=== PATIENT | male | born 1990 | race African-American/Black ===

== ENCOUNTER 2022-01-31 21:26 | Inpatient (IN) | payer MEDICARE, OTHER ==
[2022-02-01] MEDS ORDERED: MORPHINE SULFATE 4 MG/ML SYRINGE IV STA (00:53)
[2022-02-01] MEDS ORDERED: SODIUM CHLORIDE 0.9% 1,000 ML IV STA (00:53)
--- NOTE | 2022-02-01 00:53 | ED ---
Recheck HPI - General Chief Complaint: Syncope Stated Complaint: Headache,Vomiting Time Seen by Provider: 01/31/22 23:33 Source: patient, RN notes reviewed, old records reviewed Mode of arrival: wheelchair Limitations: no limitations - History of Present Illness MD Complaint: other (Syncope) -: minutes(s) Returns Today for: request for prescription, persistent/worsening pain related to initial visit Symptoms Since Prior Visit: worsening pain Context: planned re-check Associated Symptoms: none Treatments Prior to Arrival: other medications - Related Data Home Medications Medication Instructions Recorded Confirmed No Known Home Medications 02/01/22 02/01/22 Previous Rx's Medication Instructions Recorded Calcium Acetate [PhosLo] 667 mg PO TID-W/MEALS 30 Days #90 02/03/22 tab hydrALAZINE HCL [Apresoline] 50 mg PO TID 30 Days #90 tab 02/03/22 Allergies Allergy/AdvReac Type Severity Reaction Status Date / Time Iodinated Contrast Media Allergy Rash/Hives Verified 02/01/22 07:19 azithromycin AdvReac Unknown Verified 02/01/22 07:19 Macrolide Antibiotics AdvReac Unknown Verified 02/01/22 07:19 Macrolide Immunosuppressant AdvReac Unknown Verified 02/01/22 07:19 NSAIDS (Non-Steroidal AdvReac Unknown Verified 02/01/22 07:19 Anti-Inflamma Sulfa (Sulfonamide AdvReac Unknown Verified 02/01/22 07:19 Antibiotics) sulfamethoxazole AdvReac Unknown Verified 02/01/22 07:19 [From Bactrim] trimethoprim [From Bactrim] AdvReac Unknown Verified 02/01/22 07:19 Review of Systems ROS Statement: Those systems with pertinent positive or pertinent negative responses have been documented in the HPI. ROS Other: All systems not noted in ROS Statement are negative. Past Medical History Past Medical History: Dialysis Additional Past Medical History / Comment(s): benign heart murmer, Past Surgical History: Tonsillectomy Additional Past Surgical History / Comment(s): 2 kidney transplants (1993,2006), uvulaectomy, sinus surgery, thyroidectomy, fistula Smoking Status: Never smoker Past Alcohol Use History: None Reported Past Drug Use History: None Reported - Past Family History Mother Family Medical History: Renal Disease Additional Family Medical History / Comment(s): Mother from renal disease. Father History Unknown: Yes General Exam Limitations: no limitations General appearance: alert, in no apparent distress Head exam: Present: atraumatic, normocephalic, normal inspection Eye exam: Present: normal appearance, PERRL, EOMI. Absent: scleral icterus, conjunctival injection, periorbital swelling ENT exam: Present: normal exam, mucous membranes moist Neck exam: Present: normal inspection. Absent: tenderness, meningismus, lymphadenopathy Respiratory exam: Present: normal lung sounds bilaterally. Absent: respiratory distress, wheezes, rales, rhonchi, stridor Cardiovascular Exam: Present: regular rate, normal rhythm, normal heart sounds. Absent: systolic murmur, diastolic murmur, rubs, gallop, clicks GI/Abdominal exam: Present: soft, normal bowel sounds. Absent: distended, tenderness, guarding, rebound, rigid Extremities exam: Present: normal inspection, full ROM, normal capillary refill. Absent: tenderness, pedal edema, joint swelling, calf tenderness Back exam: Present: normal inspection Neurological exam: Present: alert, oriented X3, CN II-XII intact Psychiatric exam: Present: normal affect, normal mood Skin exam: Present: warm, dry, intact, normal color. Absent: rash Course Vital Signs 01/31/22 02/01/22 02/01/22 23:04 03:48 09:14 Temperature 97.5 F L 97.8 F Pulse Rate 78 81 74 Respiratory 18 16 16 Rate Blood Pressure 172/84 153/78 174/85 O2 Sat by Pulse 100 99 99 Oximetry 02/01/22 11:43 Temperature Pulse Rate 93 Respiratory 15 Rate Blood Pressure 190/97 O2 Sat by Pulse 98 Oximetry - Reevaluation(s) Reevaluation #1: 02/01/22 Reevaluation #2: 02/01/22 Reevaluation #3: 02/01/22 Medical Decision Making - Lab Data Result diagrams: 02/03/22 10:48 02/03/22 10:48 Lab Results 02/01/22 02/01/22 02/01/22 Range/Units 02:22 02:22 02:22 WBC 5.0 (3.8-10.6) k/uL RBC 3.54 L (4.30-5.90) m/uL Hgb 10.4 L (13.0-17.5) gm/dL Hct 32.5 L (39.0-53.0) % MCV 92.0 (80.0-100.0) fL MCH 29.3 (25.0-35.0) pg MCHC 31.8 (31.0-37.0) g/dL RDW 15.6 H (11.5-15.5) % Plt Count 168 (150-450) k/uL MPV 8.9 Neutrophils % 64 % Lymphocytes % 24 % Monocytes % 5 % Eosinophils % 5 % Basophils % 1 % Neutrophils # 3.2 (1.3-7.7) k/uL Lymphocytes # 1.2 (1.0-4.8) k/uL Monocytes # 0.3 (0-1.0) k/uL Eosinophils # 0.2 (0-0.7) k/uL Basophils # 0.0 (0-0.2) k/uL Hypochromasia Slight Anisocytosis PT 11.2 (9.0-12.0) sec INR 1.0 (<1.2) APTT 25.1 (22.0-30.0) sec Sodium (137-145) mmol/L Potassium (3.5-5.1) mmol/L Chloride (98-107) mmol/L Carbon Dioxide (22-30) mmol/L Anion Gap mmol/L BUN (9-20) mg/dL Creatinine (0.66-1.25) mg/dL Est GFR (CKD-EPI)AfAm (>60 ml/min/1.73 sqM) Est GFR (CKD-EPI)NonAf (>60 ml/min/1.73 sqM) Glucose (74-99) mg/dL Calcium (8.4-10.2) mg/dL Phosphorus (2.5-4.5) mg/dL Magnesium (1.6-2.3) mg/dL Total Bilirubin (0.2-1.3) mg/dL AST (17-59) U/L ALT (4-49) U/L Alkaline Phosphatase (38-126) U/L Troponin I 0.017 (0.000-0.034) ng/mL NT-Pro-B Natriuret Pep pg/mL Total Protein (6.3-8.2) g/dL Albumin (3.5-5.0) g/dL Globulin g/dL Albumin/Globulin Ratio Coronavirus (PCR) (Not Detectd) Hep Bs Antigen (Nonreactive) Hep Bs Antibody (Nonreactive) Hep Bs Antibody, Quant mIU/mL 02/01/22 02/01/22 02/01/22 Range/Units 02:22 03:32 03:32 WBC (3.8-10.6) k/uL RBC (4.30-5.90) m/uL Hgb (13.0-17.5) gm/dL Hct (39.0-53.0) % MCV (80.0-100.0) fL MCH (25.0-35.0) pg MCHC (31.0-37.0) g/dL RDW (11.5-15.5) % Plt Count (150-450) k/uL MPV Neutrophils % % Lymphocytes % % Monocytes % % Eosinophils % % Basophils % % Neutrophils # (1.3-7.7) k/uL Lymphocytes # (1.0-4.8) k/uL Monocytes # (0-1.0) k/uL Eosinophils # (0-0.7) k/uL Basophils # (0-0.2) k/uL Hypochromasia Anisocytosis PT (9.0-12.0) sec INR (<1.2) APTT (22.0-30.0) sec Sodium 139 (137-145) mmol/L Potassium 4.3 (3.5-5.1) mmol/L Chloride 113 H (98-107) mmol/L Carbon Dioxide 7 L* (22-30) mmol/L Anion Gap 19 mmol/L BUN 109 H* (9-20) mg/dL Creatinine 27.97 H* (0.66-1.25) mg/dL Est GFR (CKD-EPI)AfAm 2 (>60 ml/min/1.73 sqM) Est GFR (CKD-EPI)NonAf 2 (>60 ml/min/1.73 sqM) Glucose 56 L (74-99) mg/dL Calcium 6.2 L* (8.4-10.2) mg/dL Phosphorus 9.8 H* (2.5-4.5) mg/dL Magnesium 2.8 H (1.6-2.3) mg/dL Total Bilirubin 0.4 (0.2-1.3) mg/dL AST 4 L (17-59) U/L ALT <6 (4-49) U/L Alkaline Phosphatase 47 (38-126) U/L Troponin I (0.000-0.034) ng/mL NT-Pro-B Natriuret Pep 48757 pg/mL Total Protein 4.9 L (6.3-8.2) g/dL Albumin 2.7 L (3.5-5.0) g/dL Globulin g/dL Albumin/Globulin Ratio Coronavirus (PCR) (Not Detectd) Hep Bs Antigen Nonreactive (Nonreactive) Hep Bs Antibody Reactive A (Nonreactive) Hep Bs Antibody, Quant 1000.0 mIU/mL 02/01/22 02/02/22 02/02/22 Range/Units 05:16 08:33 08:33 WBC 3.4 L (3.8-10.6) k/uL RBC 2.95 L (4.30-5.90) m/uL Hgb 8.9 L D (13.0-17.5) gm/dL Hct 26.6 L (39.0-53.0) % MCV 90.2 (80.0-100.0) fL MCH 30.0 (25.0-35.0) pg MCHC 33.3 (31.0-37.0) g/dL RDW 16.1 H (11.5-15.5) % Plt Count 155 (150-450) k/uL MPV 7.9 Neutrophils % % Lymphocytes % % Monocytes % % Eosinophils % % Basophils % % Neutrophils # (1.3-7.7) k/uL Lymphocytes # (1.0-4.8) k/uL Monocytes # (0-1.0) k/uL Eosinophils # (0-0.7) k/uL Basophils # (0-0.2) k/uL Hypochromasia Anisocytosis Slight PT (9.0-12.0) sec INR (<1.2) APTT (22.0-30.0) sec Sodium 137 (137-145) mmol/L Potassium 3.7 (3.5-5.1) mmol/L Chloride 99 (98-107) mmol/L Carbon Dioxide 23 (22-30) mmol/L Anion Gap 15 mmol/L BUN 67 H (9-20) mg/dL Creatinine 21.43 H* (0.66-1.25) mg/dL Est GFR (CKD-EPI)AfAm 3 (>60 ml/min/1.73 sqM) Est GFR (CKD-EPI)NonAf 2 (>60 ml/min/1.73 sqM) Glucose 103 H (74-99) mg/dL Calcium 7.8 L (8.4-10.2) mg/dL Phosphorus (2.5-4.5) mg/dL Magnesium 2.6 H (1.6-2.3) mg/dL Total Bilirubin 0.5 (0.2-1.3) mg/dL AST 6 L (17-59) U/L ALT <6 (4-49) U/L Alkaline Phosphatase 62 (38-126) U/L Troponin I (0.000-0.034) ng/mL NT-Pro-B Natriuret Pep pg/mL Total Protein 6.1 L (6.3-8.2) g/dL Albumin 3.6 (3.5-5.0) g/dL Globulin 2.5 g/dL Albumin/Globulin Ratio 1.4 Coronavirus (PCR) Not Detected (Not Detectd) Hep Bs Antigen (Nonreactive) Hep Bs Antibody (Nonreactive) Hep Bs Antibody, Quant mIU/mL 02/02/22 Range/Units 08:33 WBC (3.8-10.6) k/uL RBC (4.30-5.90) m/uL Hgb (13.0-17.5) gm/dL Hct (39.0-53.0) % MCV (80.0-100.0) fL MCH (25.0-35.0) pg MCHC (31.0-37.0) g/dL RDW (11.5-15.5) % Plt Count (150-450) k/uL MPV Neutrophils % % Lymphocytes % % Monocytes % % Eosinophils % % Basophils % % Neutrophils # (1.3-7.7) k/uL Lymphocytes # (1.0-4.8) k/uL Monocytes # (0-1.0) k/uL Eosinophils # (0-0.7) k/uL Basophils # (0-0.2) k/uL Hypochromasia Anisocytosis PT (9.0-12.0) sec INR (<1.2) APTT (22.0-30.0) sec Sodium (137-145) mmol/L Potassium (3.5-5.1) mmol/L Chloride (98-107) mmol/L Carbon Dioxide (22-30) mmol/L Anion Gap mmol/L BUN (9-20) mg/dL Creatinine (0.66-1.25) mg/dL Est GFR (CKD-EPI)AfAm (>60 ml/min/1.73 sqM) Est GFR (CKD-EPI)NonAf (>60 ml/min/1.73 sqM) Glucose (74-99) mg/dL Calcium (8.4-10.2) mg/dL Phosphorus 8.3 H (2.5-4.5) mg/dL Magnesium (1.6-2.3) mg/dL Total Bilirubin (0.2-1.3) mg/dL AST (17-59) U/L ALT (4-49) U/L Alkaline Phosphatase (38-126) U/L Troponin I (0.000-0.034) ng/mL NT-Pro-B Natriuret Pep pg/mL Total Protein (6.3-8.2) g/dL Albumin (3.5-5.0) g/dL Globulin g/dL Albumin/Globulin Ratio Coronavirus (PCR) (Not Detectd) Hep Bs Antigen (Nonreactive) Hep Bs Antibody (Nonreactive) Hep Bs Antibody, Quant mIU/mL - EKG Data -: EKG Interpreted by Me (EKG shows sinus rhythm 83 [place] 151 QRS 73 QTC 420) Disposition Clinical Impression: Vasovagal syncope, Chronic kidney disease, Syncope Disposition: ADMITTED IP TO THIS HOSP Condition: Stable Is patient prescribed a controlled substance at d/c from ED?: No
[2022-02-01 02:55] LABS: Partial Thromboplastin Time 25.1 sec (22.0-30.0); Prothrombin Time 11.2 sec (9.0-12.0)
[2022-02-01 03:06] LABS: Basophils % (A) 1 %; Eosinophils # (A) 0.2 k/uL (0-0.7); Eosinophils % (A) 5 %; HCT 32.5 % (39.0-53.0); HGB 10.4 gm/dL (13.0-17.5); Hypochromasia Slight; Lymphocytes # (A) 1.2 k/uL (1.0-4.8); Lymphocytes % (A) 24 %; MCH 29.3 pg (25.0-35.0); MCHC 31.8 g/dL (31.0-37.0); Mean Platelet Volume 8.9; Monocytes # (A) 0.3 k/uL (0-1.0); Monocytes % (A) 5 %; Neutrophils # (A) 3.2 k/uL (1.3-7.7); Neutrophils % (A) 64 %; Platelet Count 168 k/uL (150-450); RBC 3.54 m/uL (4.30-5.90); RDW 15.6 % (11.5-15.5)
[2022-02-01 04:08] LABS: ALT <6 U/L (4-49); AST 4 U/L (17-59); Albumin 2.7 g/dL (3.5-5.0); Alkaline Phosphatase 47 U/L (38-126); Anion Gap 19 mmol/L; Chloride 113 mmol/L (98-107); Glucose 56 mg/dL (74-99); Magnesium 2.8 mg/dL (1.6-2.3); Potassium 4.3 mmol/L (3.5-5.1); Sodium 139 mmol/L (137-145); Total Bilirubin 0.4 mg/dL (0.2-1.3); Total Protein 4.9 g/dL (6.3-8.2)
--- NOTE | 2022-02-01 04:08 | CT ---
EXAM: CT Head Without Intravenous Contrast CLINICAL HISTORY: ITS.REASON CT Reason: weakness TECHNIQUE: Axial computed tomography images of the head/brain without intravenous contrast. CTDI is 1082.4 mGy and DLP is 49.27 mGy-cm. This CT exam was performed using one or more of the following dose reduction techniques: automated exposure control, adjustment of the mA and/or kV according to patient size, and/or use of iterative reconstruction technique. COMPARISON: No relevant prior studies available. FINDINGS: Brain: No hemorrhage or mass effect. Ventricles: No hydrocephalus. Bones/joints: Unremarkable. Soft tissues: Unremarkable. Sinuses: No air fluid level. Mastoid air cells: Clear. IMPRESSION: No acute hemorrhage, hydrocephalus, or mass effect.
[2022-02-01 04:14] LABS: African American GFR (CKD) 2 (>60 ml/min/1.73 sqM); Non-African American GFR(CKD) 2 (>60 ml/min/1.73 sqM)
[2022-02-01] MEDS ORDERED: NALOXONE 0.4 MG/ML 1 ML VIAL IV PRN (04:16)
[2022-02-01 04:22] LABS: Blood Urea Nitrogen 109 mg/dL (9-20); Calcium 6.2 mg/dL (8.4-10.2); Carbon Dioxide 7 mmol/L (22-30); Phosphorus 9.8 mg/dL (2.5-4.5)
[2022-02-01] MEDS: SODIUM CHLORIDE 0.9% 1,000 ML IV SCH (04:45)
--- NOTE | 2022-02-01 06:02 | P.HPIM ---
History of Present Illness H&P Date: 02/01/22 The patient is a 31-year-old male with a PMH of ESRD on hemodialysis who presents to the emergency room after a recent COVID-19 diagnosis as well as missing several weeks of dialysis. The patient reports that his girlfriend contracted COVID roughly 2 weeks ago, and that he only began showing symptoms yesterday. He reports being tested and being told that it was positive. He reports experiencing shortness of breath, nonproductive cough, fatigue, excessive sleep, diarrhea, diffuse mild abdominal pain, and lethargy. Also reports receiving his last session of dialysis on 01/18 and not being able to get any additional ones due to his COVID diagnosis. He denied chest discomfort or fever. CT brain in the emergency room was unremarkable. EKG was sinus rhythm at [address]/T-wave changes noted as reviewed by me. Laboratory evaluation is remarkable for CO2 7, BUN 109, creatinine 27.97, calcium 6.2, phosphorus 9.8. Review of systems: Pertinent positives and negatives as discussed in HPI, a complete review of systems was performed and all other systems are negative. Physical examination: General: non toxic, no distress, appears older than stated age, normal weight Derm: no unusual rashes/lesions, warm Head: atraumatic, normocephalic, symmetric Eyes: EOMI, no lid lag, anicteric sclera, pupils equal round reactive to light ENT: Nose and ears atraumatic Neck: No cervical lymphadenopathy, trachea midline, supple Mouth: no lip lesion, mucus membranes moist Cardiovascular: S1S2 reg, no murmur, positive dorsalis pedis pulse bilateral, no edema Lungs: CTA bilateral, no rhonchi, no rales, no accessory muscle use Abdominal: soft, diffuse mild tenderness to palpation, no guarding Ext: muscle strength 5 out of 5 in all 4 extremities grossly, no gross muscle atrophy, no contractures, Neuro: CN II-XI grossly intact, no gross focal neuro deficits Psych: Alert, oriented, appropriate affect Assessment/plan Missed dialysis sessions -Stat nephrology consult for dialysis COVID 19 infection -Patient's SpO2 100% on room air in the emergency room -Vit C, Vit D, Melatonin DVT prophylaxis -Lovenox The patient is admitted with an anticipated less than 2 midnight stay for eval uation of missed dialysis CODE STATUS: Full Code Discussed with: Patient Anticipated discharge date: in am Anticipated discharge place: Home Past Medical History Past Medical History: Dialysis Additional Past Medical History / Comment(s): benign heart murmer, Past Surgical History: Tonsillectomy Additional Past Surgical History / Comment(s): 2 kidney transplants (1993,2006), uvulaectomy, sinus surgery, thyroidectomy, fistula Smoking Status: Never smoker Past Alcohol Use History: None Reported Past Drug Use History: None Reported - Past Family History Mother Family Medical History: COPD Medications and Allergies Allergies Allergy/AdvReac Type Severity Reaction Status Date / Time Iodinated Contrast Media Allergy Rash/Hives Verified 01/31/22 23:25 azithromycin AdvReac Unknown Verified 01/31/22 23:25 Macrolide Antibiotics AdvReac Unknown Verified 01/31/22 23:25 Macrolide Immunosuppressant AdvReac Unknown Verified 01/31/22 23:25 NSAIDS (Non-Steroidal AdvReac Unknown Verified 01/31/22 23:25 Anti-Inflamma Sulfa (Sulfonamide AdvReac Unknown Verified 01/31/22 23:25 Antibiotics) sulfamethoxazole AdvReac Unknown Verified 01/31/22 23:25 [From Bactrim] trimethoprim [From Bactrim] AdvReac Unknown Verified 01/31/22 23:25 Physical Exam Vitals: Vital Signs Temp Pulse Resp BP Pulse Ox 02/01/22 03:48 97.8 F 81 16 153/78 99 01/31/22 23:04 97.5 F L 78 18 172/84 100 Intake and Output 01/31/22 01/31/22 02/01/22 14:59 22:59 06:59 Other: Weight 46.266 kg Results CBC & Chem 7: 02/01/22 02:22 02/01/22 03:32 Labs: Abnormal Lab Results - Last 24 Hours (Table) 02/01/22 02/01/22 Range/Units 02:22 03:32 RBC 3.54 L (4.30-5.90) m/uL Hgb 10.4 L (13.0-17.5) gm/dL Hct 32.5 L (39.0-53.0) % RDW 15.6 H (11.5-15.5) % Chloride 113 H (98-107) mmol/L Carbon Dioxide 7 L* (22-30) mmol/L BUN 109 H* (9-20) mg/dL Creatinine 27.97 H* (0.66-1.25) mg/dL Glucose 56 L (74-99) mg/dL Calcium 6.2 L* (8.4-10.2) mg/dL Phosphorus 9.8 H* (2.5-4.5) mg/dL Magnesium 2.8 H (1.6-2.3) mg/dL AST 4 L (17-59) U/L Total Protein 4.9 L (6.3-8.2) g/dL Albumin 2.7 L (3.5-5.0) g/dL
[2022-02-01] MEDS ORDERED: CALCIUM GLUCONATE IN NACL 1 GM in SALINE 1 100ML.BAG IVPB ONE (06:46)
[2022-02-01] MEDS ORDERED: SODIUM BICARB 8.4% 50 ML SYR (1 MEQ/ML) IV STA (06:46)
[2022-02-01] MEDS: CALCIUM ACETATE 667 MG TAB PO SCH ×3 (08:16→17:58)
[2022-02-01] MEDS: ZINC SULFATE 220 MG CAP PO SCH (08:16)
[2022-02-01] MEDS: ASCORBIC ACID 500 MG TAB PO SCH (08:16)
[2022-02-01] MEDS: CHOLECALCIFEROL 125 MCG (5000 IU) TABLET PO SCH (08:16)
[2022-02-01] MEDS ORDERED: ENOXAPARIN 30 MG/0.3 ML SYRINGE SQ SCH (09:00)
[2022-02-01] MEDS: ONDANSETRON 4 MG/2 ML VIAL IVP PRN (09:27)
--- NOTE | 2022-02-01 10:10 | P.PN ---
Subjective Progress Note Date: 02/01/22 Hospital course: The patient is a 31-year-old male with a PMH of ESRD on hemodialysis who presents to the emergency room after a recent COVID-19 diagnosis as well as missing several weeks of dialysis with last reported dialysis treatment being 01/18/22. Patient reports he did not go to dialysis because his girlfriend contracted Covid 2 weeks ago and he tested positive for little over 1 week ago. Patient reports that he did not have any symptoms of Covid until yesterday when he began to feel fatigued, lethargic, short of breath with a nonproductive cough and diffuse abdominal discomfort. Patient underwent full evaluation in the emergency department. EKG was completed revealing normal sinus rhythm at [address] head negative for acute intercranial process. CBC revealing normocytic normochromic anemia with hemoglobin of 10.4. BMP revealing severe metabolic acidosis with chloride 113, carbon dioxide 7, anion gap of 19, BUN of 109, creatinine 27.97 and glucose of 56. proBNP 92,600 and troponin 0.017. Cold PCR was negative. Physical exam: Vital signs reviewed and stable. General: Nontoxic, no distress and appears stated age. Derm: Skin warm and dry, normal coloration for ethnicity. Head: Atraumatic, normocephalic and symmetric. Eyes: EOMs intact, no lid lag, and anicteric sclera Mouth: no lip lesions, mucus membranes moist Cardiovascular: regular rate and rhythm with normal S1S2, no murmur, positive posterior tibial pulses bilaterally, and cap refill < 2 seconds. AV fistula left upper thigh with bruit and thrill intact. Lungs: Respirations even, regular, and unlabored on room air. Diminished no rhonchi, no rales, no wheezing, and no accessory muscle usage. Abdominal: soft, nontender to palpation, no guarding, no appreciable organomegaly Ext: ROM intact. No gross muscle atrophy, no edema, no contractures Neuro: Speech clear, face symmetrical and CN II-XII grossly intact with no noted focal neuro defic Assessment/plan ESRD on dialysis, noncompliance with dialysis sessions and missed multiple dialysis sessions -Stat nephrology consult for dialysis. -Telemetry monitoring -Patient strongly educated on the importance of being compliant with dialysis treatments and risks associated with noncompliance and continued missing sessions up to and including . COVID 19 infection -Patient's SpO2 100% on room air in the emergency room -Vit C, Vit D, Melatonin -Repeat Covid testing negative. CODE STATUS: Full code DVT prophylaxis: heparin Discussed with: patient and RN Anticipated discharge date: likely tomorrow after dialysis Anticipated discharge place: : Home A total of 35 minutes was spent on the care of this complex patient more than 50% of the time was spent in counseling and care coordination. Objective - Vital Signs Vital signs: Vital Signs Temp 97.8 F 02/01/22 03:48 Pulse 81 02/01/22 03:48 Resp 16 02/01/22 03:48 BP 153/78 02/01/22 03:48 Pulse Ox 99 02/01/22 03:48 FiO2 Intake & Output 01/31/22 02/01/22 02/01/22 18:59 06:59 18:59 Weight 46.266 kg - Labs CBC & Chem 7: 02/01/22 02:22 02/01/22 03:32 Labs: Abnormal Lab Results - Last 24 Hours (Table) 02/01/22 02/01/22 Range/Units 02:22 03:32 RBC 3.54 L (4.30-5.90) m/uL Hgb 10.4 L (13.0-17.5) gm/dL Hct 32.5 L (39.0-53.0) % RDW 15.6 H (11.5-15.5) % Chloride 113 H (98-107) mmol/L Carbon Dioxide 7 L* (22-30) mmol/L BUN 109 H* (9-20) mg/dL Creatinine 27.97 H* (0.66-1.25) mg/dL Glucose 56 L (74-99) mg/dL Calcium 6.2 L* (8.4-10.2) mg/dL Phosphorus 9.8 H* (2.5-4.5) mg/dL Magnesium 2.8 H (1.6-2.3) mg/dL AST 4 L (17-59) U/L Total Protein 4.9 L (6.3-8.2) g/dL Albumin 2.7 L (3.5-5.0) g/dL
--- NOTE | 2022-02-01 11:29 | P.NPCON ---
History of Present Illness - Reason for Consult end stage renal disease - History of Present Illness Reason for consultation: End-stage renal disease History of present illness: Patient is a 31-year-old male seen in renal consultation for end-stage renal disease. He is maintained on hemodialysis on Friday schedule via left femoral graft. Patient was seen and examined in the emergency room. Patient states his last hemodialysis was 01/18/2022. Patient states that his girlfriend was also diagnosed with COVID-19 about 2 weeks ago. Patient states he also had Covid in the past but began feeling worse yesterday. Patient did not go to his dialysis unit due to diagnosis. Patient presents to the hospital due to shortness of breath and cough. Patient states he's been feeling more t ired and was concerned about missing hemodialysis. He denies fever or chills. Brain CT showed no acute changes. Oral intake has been fair. Does admit to intermittent episodes of diarrhea. No abdominal pain. Vital signs are stable. General: Awake. No acute distress. HEENT: Head exam is unremarkable. LUNGS: Breath sounds decreased. HEART: Rate and Rhythm are regular. ABDOMEN: Soft, no distention. EXTREMITITES: Trace edema. 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 History of Any Multi-Drug Resistant Organisms: MRSA Date of last positivie culture/infection: 2005 MDRO Source:: L ring finger Past Surgical History: Tonsillectomy Additional Past Surgical History / Comment(s): 2 kidney transplants (1993,2006), fistulas, EGD, uvulectomy, sinus surgery, partial thyroidectomy, Past Anesthesia/Blood Transfusion Reactions: No Reported Reaction Smoking Status: Never smoker - Past Family History Mother Family Medical History: Renal Disease Additional Family Medical History / Comment(s): Mother from renal disease. Father History Unknown: Yes Medications and Allergies Home Medications Medication Instructions Recorded Confirmed Type No Known Home Medications 02/01/22 02/01/22 History Allergies Allergy/AdvReac Type Severity Reaction Status Date / Time Iodinated Contrast Media Allergy Rash/Hives Verified 02/01/22 07:19 azithromycin AdvReac Unknown Verified 02/01/22 07:19 Macrolide Antibiotics AdvReac Unknown Verified 02/01/22 07:19 Macrolide Immunosuppressant AdvReac Unknown Verified 02/01/22 07:19 NSAIDS (Non-Steroidal AdvReac Unknown Verified 02/01/22 07:19 Anti-Inflamma Sulfa (Sulfonamide AdvReac Unknown Verified 02/01/22 07:19 Antibiotics) sulfamethoxazole AdvReac Unknown Verified 02/01/22 07:19 [From Bactrim] trimethoprim [From Bactrim] AdvReac Unknown Verified 02/01/22 07:19 Physical Exam Vitals: Vital Signs Temp Pulse Resp BP Pulse Ox 02/01/22 09:14 74 16 174/85 99 02/01/22 03:48 97.8 F 81 16 153/78 99 01/31/22 23:04 97.5 F L 78 18 172/84 100 Intake and Output 01/31/22 02/01/22 02/01/22 22:59 06:59 14:59 Other: Weight 46.266 kg 46.266 kg Results - Lab Results Most recent lab results Calcium 6.2 mg/dL (8.4-10.2) L* 02/01/22 03:32 Phosphorus 9.8 mg/dL (2.5-4.5) H* 02/01/22 03:32 Magnesium 2.8 mg/dL (1.6-2.3) H 02/01/22 03:32 02/01/22 02:22 02/01/22 03:32 Assessment and Plan Plan: Assessment: 1. End-stage renal disease maintained on hemodialysis on Friday was a Friday schedule via left femoral graft. Last dialysis was 01/18/2022. Patient's outpatient clinic as [facility]. 2. Metabolic acidosis secondary to chronic kidney disease and GI losses. Expect improvement postdialysis. 3. Hypocalcemia secondary to chronic kidney disease. Expect improvement postdialysis. 4. Chronic kidney disease mineral bone disease. Maintained on PhosLo. Phosphorus 9.8. Expect improvement post dialysis. 5. Hypertension with chronic kidney disease. Plan: Hemodialysis today and again tomorrow. Patient received bicarb IV push in the ER. Add hydralazine 25 mg 3 times daily. Hold for systolic blood pressure less than 120. Strongly advised patient to be compliant with hemodialysis treatments outpatient. Life-threatening risks, including , of being noncompliant have been discussed with the patient. Thank you for the consultation. I will continue to follow the patient with you during his hospital stay.
[2022-02-01] MEDS: hydrALAZINE HCL 25 MG TAB PO SCH ×3 (11:42→21:07)
[2022-02-01 16:54] LABS: Hepatitis B Surface Antibody Reactive (Nonreactive)
[2022-02-01 17:00] LABS: Hepatitis B Surface Antigen Nonreactive (Nonreactive)
[2022-02-01] MEDS: HEPARIN SODIUM,PORCINE/PF 5,000 UNIT/0.5 ML SYRINGE SQ SCH ×2 (18:02→21:07)
[2022-02-01] MEDS ORDERED: MELATONIN 5 MG TABLET PO PRN (21:00)
[2022-02-02] MEDS ORDERED: MORPHINE SULFATE 4 MG/ML SYRINGE IVP STA (02:50)
[2022-02-02] MEDS: ONDANSETRON 4 MG/2 ML VIAL IVP PRN ×3 (03:25→23:03)
[2022-02-02] MEDS: SODIUM CHLORIDE 0.9% 1,000 ML IV SCH (03:26)
[2022-02-02] MEDS: ASCORBIC ACID 500 MG TAB PO SCH (08:37)
[2022-02-02] MEDS: ZINC SULFATE 220 MG CAP PO SCH (08:38)
[2022-02-02] MEDS: HEPARIN SODIUM,PORCINE/PF 5,000 UNIT/0.5 ML SYRINGE SQ SCH ×2 (08:38→15:06)
[2022-02-02] MEDS: hydrALAZINE HCL 25 MG TAB PO SCH ×3 (08:38→23:03)
[2022-02-02] MEDS: CHOLECALCIFEROL 125 MCG (5000 IU) TABLET PO SCH (08:38)
[2022-02-02] MEDS: CALCIUM ACETATE 667 MG TAB PO SCH ×3 (08:38→23:03)
[2022-02-02 08:57] LABS: ALT <6 U/L (4-49); AST 6 U/L (17-59); Albumin 3.6 g/dL (3.5-5.0); Albumin/Globulin Ratio 1.4; Alkaline Phosphatase 62 U/L (38-126); Anion Gap 15 mmol/L; Blood Urea Nitrogen 67 mg/dL (9-20); Calcium 7.8 mg/dL (8.4-10.2); Carbon Dioxide 23 mmol/L (22-30); Chloride 99 mmol/L (98-107); Globulin 2.5 g/dL; Glucose 103 mg/dL (74-99); Magnesium 2.6 mg/dL (1.6-2.3); Potassium 3.7 mmol/L (3.5-5.1); Sodium 137 mmol/L (137-145); Total Bilirubin 0.5 mg/dL (0.2-1.3); Total Protein 6.1 g/dL (6.3-8.2)
[2022-02-02 09:03] LABS: African American GFR (CKD) 3 (>60 ml/min/1.73 sqM); Non-African American GFR(CKD) 2 (>60 ml/min/1.73 sqM)
[2022-02-02 09:23] LABS: Anisocytosis Slight; HCT 26.6 % (39.0-53.0); MCHC 33.3 g/dL (31.0-37.0); MCV 90.2 fL (80.0-100.0); Mean Platelet Volume 7.9; Platelet Count 155 k/uL (150-450); RBC 2.95 m/uL (4.30-5.90); RDW 16.1 % (11.5-15.5); WBC 3.4 k/uL (3.8-10.6)
[2022-02-02 09:26] LABS: HGB 8.9 gm/dL (13.0-17.5)
--- NOTE | 2022-02-02 10:31 | P.PN ---
Subjective Patient is seen in follow-up for end-stage renal disease. Tolerated hemodialysis well yesterday with 2 L ultrafiltration. Per nurse, I was informed this morning that he had oozing from the AV graft site and improved after pressure dressing was applied. The bleeding is currently controlled. Denies chest pain or shortness of breath. Oral intake fair. Vital signs stable. General: No acute distress. HEENT: Head exam is unremarkable. LUNGS:. Breath sounds decreased. HEART: Rate and Rhythm are regular. ABDOMEN: Soft, no distention. EXTREMITITES: No edema. Objective - Vital Signs Vital signs: Vital Signs Temp 98.3 F 02/02/22 07:00 Pulse 93 02/02/22 07:00 Resp 16 02/02/22 07:00 BP 160/77 02/02/22 07:00 Pulse Ox 97 02/02/22 07:00 FiO2 Intake & Output 02/01/22 02/02/22 02/02/22 18:59 06:59 18:59 Intake Total 75 Output Total 1999 Balance -1999 75 Weight 46.266 kg Intake: Oral 75 Output: Hemodialysis 1999 Other: # Voids 1 - Labs CBC & Chem 7: 02/02/22 08:33 02/02/22 08:33 Labs: Abnormal Lab Results - Last 24 Hours (Table) 02/01/22 02/02/22 02/02/22 Range/Units 03:32 08:33 08:33 WBC 3.4 L (3.8-10.6) k/uL RBC 2.95 L (4.30-5.90) m/uL Hgb 8.9 L D (13.0-17.5) gm/dL Hct 26.6 L (39.0-53.0) % RDW 16.1 H (11.5-15.5) % BUN 67 H (9-20) mg/dL Creatinine 21.43 H* (0.66-1.25) mg/dL Glucose 103 H (74-99) mg/dL Calcium 7.8 L (8.4-10.2) mg/dL Magnesium 2.6 H (1.6-2.3) mg/dL AST 6 L (17-59) U/L Total Protein 6.1 L (6.3-8.2) g/dL Hep Bs Antibody Reactive A (Nonreactive) Assessment and Plan Plan: Assessment: 1. End-stage renal disease maintained on hemodialysis on Friday was a Friday schedule via left femoral graft. Last dialysis was 01/18/2022. Patient's outpatient clinic as [facility]. 2. Metabolic acidosis secondary to chronic kidney disease and GI losses. Improved postdialysis. 3. Hypocalcemia secondary to chronic kidney disease. Improved. 4. Chronic kidney disease mineral bone disease. Maintained on PhosLo. Phosphorus 9.8. Expect improvement post dialysis. 5. Hypertension with chronic kidney disease. Stable. Plan: Hemodialysis again today. Increase dose of hydralazine. Hold for systolic blood pressure less than 120. Repeat phosphorus level. Strongly advised patient to be compliant with hemodialysis treatments outpatient. Life-threatening risks, including , of being noncompliant have been discussed with the patient.
--- NOTE | 2022-02-02 16:40 | P.PN ---
Subjective Progress Note Date: 02/02/22 Hospital course: The patient is a 31-year-old male with a PMH of ESRD on hemodialysis who presents to the emergency room after a recent COVID-19 diagnosis as well as missing several weeks of dialysis with last reported dialysis treatment being 01/18/22. Patient reports he did not go to dialysis because his girlfriend contracted Covid 2 weeks ago and he tested positive for little over 1 week ago. Patient reports that he did not have any symptoms of Covid until yesterday when he began to feel fatigued, lethargic, short of breath with a nonproductive cough and diffuse abdominal discomfort. Patient underwent full evaluation in the emergency department. EKG was completed revealing normal sinus rhythm at [address] head negative for acute intercranial process. CBC revealing normocytic normochromic anemia with hemoglobin of 10.4. BMP revealing severe metabolic acidosis with chloride 113, carbon dioxide 7, anion gap of 19, BUN of 109, creatinine 27.97 and glucose of 56. proBNP 92,600 and troponin 0.017. Cold PCR was negative. Patient was admitted under our services with emergent consult to nephrology for much-needed dialysis. Renal function showing BUN of 67, creati nine 21.43, and GFR of 2. Patient scheduled to undergo dialysis again today. Physical exam: Patient seen and fully evaluated at bedside this morning. Patient reports feeling tired. Per hour and patient had moderate amount of bleeding from dialysis catheter site overnight. This was controlled. Repeat morning hemoglobin revealing a 1.5 g drop in hemoglobin and is currently stable at 8.9. Renal function showing BUN of 67, creatinine 21.43, and GFR of 2. Patient scheduled to undergo dialysis again today. Vital signs reviewed and stable. General: Nontoxic, no distress and appears stated age. Derm: Skin warm and dry, normal coloration for ethnicity. Head: Atraumatic, normocephalic and symmetric. Eyes: EOMs intact, no lid lag, and anicteric sclera Mouth: no lip lesions, mucus membranes moist Cardiovascular: regular rate and rhythm with normal S1S2, systolic murmur, positive posterior tibial pulses bilaterally, and cap refill < 2 seconds. AV fistula left upper thigh with bruit and thrill intact. Lungs: Respirations even, regular, and unlabored on room air. Diminished no rhonchi, no rales, no wheezing, and no accessory muscle usage. Abdominal: soft, nontender to palpation, no guarding, no appreciable organomegaly Ext: ROM intact. No gross muscle atrophy, no edema, no contractures Neuro: Speech clear, face symmetrical and CN II-XII grossly intact with no noted focal neuro defic Assessment/plan ESRD on dialysis, noncompliance with dialysis sessions and missed multiple dialysis sessions -Stat nephrology consult for dialysis. -Telemetry monitoring -Patient strongly educated on the importance of being compliant with dialysis treatments and risks associated with noncompliance and continued missing sessions up to and including . COVID 19 infection -Patient's SpO2 100% on room air in the emergency room -Vit C, Vit D, Melatonin -Repeat Covid testing negative. CODE STATUS: Full code DVT prophylaxis: heparin Discussed with: patient and RN Anticipated discharge date: Repeat in dialysis today, possible discharge home tomorrow morning. Anticipated discharge place: : Home A total of 35 minutes was spent on the care of this complex patient more than 50% of the time was spent in counseling and care coordination. Objective - Vital Signs Vital signs: Vital Signs Temp 98.3 F 02/02/22 07:00 Pulse 93 02/02/22 07:00 Resp 16 02/02/22 07:00 BP 160/77 02/02/22 07:00 Pulse Ox 97 02/02/22 07:00 FiO2 Intake & Output 02/01/22 02/02/22 02/02/22 18:59 06:59 18:59 Intake Total 75 Output Total 1999 Balance -1999 75 Weight 46.266 kg Intake: Oral 75 Output: Hemodialysis 1999 Other: # Voids 1 - Labs CBC & Chem 7: 02/02/22 08:33 02/02/22 08:33 Labs: Abnormal Lab Results - Last 24 Hours (Table) 02/01/22 Range/Units 03:32 Hep Bs Antibody Reactive A (Nonreactive)
[2022-02-03] MEDS: SODIUM CHLORIDE 0.9% 1,000 ML IV SCH (01:28)
[2022-02-03] MEDS: HEPARIN SODIUM,PORCINE/PF 5,000 UNIT/0.5 ML SYRINGE SQ SCH ×2 (01:28→09:54)
[2022-02-03 07:53] VITALS: BP 155/79; PULSE 83; RESP 16; TEMP 98.6
[2022-02-03] MEDS: CALCIUM ACETATE 667 MG TAB PO SCH ×2 (08:51→12:48)
[2022-02-03] MEDS: ZINC SULFATE 220 MG CAP PO SCH (08:52)
[2022-02-03] MEDS: hydrALAZINE HCL 25 MG TAB PO SCH (08:52)
[2022-02-03] MEDS: CHOLECALCIFEROL 125 MCG (5000 IU) TABLET PO SCH (08:53)
[2022-02-03] MEDS: ASCORBIC ACID 500 MG TAB PO SCH (08:53)
[2022-02-03] MEDS ORDERED: HYDROcodone/APAP 5-325MG 1 EACH TAB PO PRN (10:36)
[2022-02-03 11:11] LABS: Basophils % (A) 1 %; Eosinophils # (A) 0.3 k/uL (0-0.7); Eosinophils % (A) 9 %; HCT 28.6 % (39.0-53.0); HGB 9.4 gm/dL (13.0-17.5); Hypochromasia Slight; Lymphocytes # (A) 1.1 k/uL (1.0-4.8); Lymphocytes % (A) 28 %; MCHC 32.8 g/dL (31.0-37.0); MCV 91.5 fL (80.0-100.0); Mean Platelet Volume 7.9; Monocytes # (A) 0.2 k/uL (0-1.0); Monocytes % (A) 6 %; Neutrophils # (A) 2.1 k/uL (1.3-7.7); Neutrophils % (A) 54 %; Platelet Count 177 k/uL (150-450); RBC 3.12 m/uL (4.30-5.90); RDW 15.6 % (11.5-15.5); WBC 3.8 k/uL (3.8-10.6)
[2022-02-03 11:21] LABS: Anion Gap 14 mmol/L; Blood Urea Nitrogen 34 mg/dL (9-20); Calcium 8.7 mg/dL (8.4-10.2); Carbon Dioxide 23 mmol/L (22-30); Chloride 99 mmol/L (98-107); Glucose 115 mg/dL (74-99); Sodium 136 mmol/L (137-145)
--- NOTE | 2022-02-03 11:27 | P.PN ---
Subjective Patient is seen in follow-up for end-stage renal disease. Underwent dialysis last 2 days. Tolerated hemodialysis well yesterday with 2.3 L ultrafiltration. Did not have any bleeding episodes from the graft site yesterday. Resting in bed. No active complaints. Vital signs stable. General: No acute distress. HEENT: Head exam is unremarkable. LUNGS:. Breath sounds decreased. HEART: Rate and Rhythm are regular. ABDOMEN: Soft, no distention. EXTREMITITES: No edema. Objective - Vital Signs Vital signs: Vital Signs Temp 98.6 F 02/03/22 07:23 Pulse 83 02/03/22 07:23 Resp 16 02/03/22 08:58 BP 155/79 02/03/22 07:23 Pulse Ox 100 02/03/22 07:23 FiO2 Intake & Output 02/02/22 02/03/22 02/03/22 18:59 06:59 18:59 Intake Total 300 50 Output Total 2300 Balance -2000 50 Intake: Oral 50 Hemodialysis 300 Output: Hemodialysis 2300 Other: # Voids 2 2 # Bowel Movements 1 - Labs CBC & Chem 7: 02/03/22 10:48 02/02/22 08:33 Labs: Abnormal Lab Results - Last 24 Hours (Table) 02/02/22 02/03/22 Range/Units 08:33 10:48 RBC 3.12 L (4.30-5.90) m/uL Hgb 9.4 L (13.0-17.5) gm/dL Hct 28.6 L (39.0-53.0) % RDW 15.6 H (11.5-15.5) % Phosphorus 8.3 H (2.5-4.5) mg/dL Assessment and Plan Plan: Assessment: 1. End-stage renal disease maintained on hemodialysis on Friday was a Friday schedule via left femoral graft. Last dialysis was 01/18/2022. Patient's outpatient clinic as [facility]. 2. Metabolic acidosis secondary to chronic kidney disease and GI losses. Improved postdialysis. 3. Hypocalcemia secondary to chronic kidney disease. Improved. 4. Chronic kidney disease mineral bone disease. Maintained on PhosLo. Phospho brii 9.8; repeat 8.3 yesterday. 5. Hypertension with chronic kidney disease. Stable. 6. Anemia of chronic kidney disease. Plan: Hemodialysis tomorrow. Increased dose of hydralazine yesterday. Hold for systolic blood pressure less than 120. Further increase dose of hydralazine if blood pressure staying persistently above 140/90. Strongly advised patient to be compliant with hemodialysis treatments outpatient. Life-threatening risks, including , of being noncompliant have been discussed with the patient. Check iron studies.
[2022-02-03 11:28] LABS: African American GFR (CKD) 5 (>60 ml/min/1.73 sqM); Non-African American GFR(CKD) 4 (>60 ml/min/1.73 sqM)
--- NOTE | 2022-02-03 15:29 | P.DS ---
Providers Date of admission: 02/01/22 04:16 Expected date of discharge: 02/03/22 Attending physician: Keri Vogt MD Consults: 02/01/22 04:16 Consult Physician Routine Consulting Provider: Beverly Vega Consult Reason/Comments: CKDneedsHD Do you want consulting provider notified?: Yes Primary care physician: Stated None Hospital Course: Discharge Diagnosis: ESRD on dialysis, noncompliance with dialysis sessions and missed multiple dialysis treatments. Patient underwent dialysis on 02/01/22 and again on 02/02/22. Patient is stable at this time. Morning labs revealed BUN 34, creatinine 14.66, and GFR of 4. Patient was instructed that he will need to resume his normal scheduled dialysis treatment tomorrow 02/04/22 and follow closely with his medical intern Dr. Huffman in [place]. Patient was educated on the importance of compliance with dialysis and risks of continued missed dialysis sessions can result in . Recent COVID 19 infection, repeat Covid testing negative. Hospital Course: The patient is a 31-year-old male with a PMH of ESRD on hemodialysis who presents to the emergency room after a recent COVID-19 diagnosis as well as missing several weeks of dialysis with last reported dialysis treatment being 01/18/22. Patient reports he did not go to dialysis because his girlfriend contracted Covid 2 weeks ago and he tested positive for little over 1 week ago. Patient reports that he did not have any symptoms of Covid until yesterday when he began to feel fatigued, lethargic, short of breath with a nonproductive cough and diffuse abdominal discomfort. Patient underwent full evaluation in the emergency department. EKG was completed revealing normal sinus rhythm at [address] head negative for acute intercranial process. CBC revealing normocytic normochromic anemia with hemoglobin of 10.4. BMP revealing severe metabolic acidosis with chloride 113, carbon dioxide 7, anion gap of 19, BUN of 109, creatinine 27.97 and glucose of 56. proBNP 92,600 and troponin 0.017. Cold PCR was negative. Patient was admitted under our services with emergent consult to nephrology for much-needed dialysis. Patient underwent dialysis 02/01/22 and again on 02/02/22. Patient is stable at this time. Morning labs revealed BUN 34, creatinine 14.66, and GFR of 4. Patient was instructed that he will need to resume his normal scheduled dialysis treatment tomorrow 02/04/22 and follow closely with his medical intern Dr. Huffman in [place] upon discharge. Patient was educated on the importance of compliance with dialysis and risks of continued missed dialysis sessions can result in . Physical exam: Patient seen and fully evaluated at bedside this morning. Patient reports feeling tired. Per hour and patient had moderate amount of bleeding from dialysis catheter site overnight. This was controlled. Repeat morning hemoglobin revealing a 1.5 g drop in hemoglobin and is currently stable at 8.9. Renal function showing BUN of 67, creatinine 21.43, and GFR of 2. Patient scheduled to undergo dialysis again today. Vital signs reviewed and stable. General: Nontoxic, no distress and appears stated age. Derm: Skin warm and dry, normal coloration for ethnicity. Head: Atraumatic, normocephalic and symmetric. Eyes: EOMs intact, no lid lag, and anicteric sclera Mouth: no lip lesions, mucus membranes moist Cardiovascular: regular rate and rhythm with normal S1S2, systolic murmur, positive posterior tibial pulses bilaterally, and cap refill < 2 seconds. AV fistula left upper thigh with bruit and thrill intact. Lungs: Respirations even, regular, and unlabored on room air. Diminished no rhonchi, no rales, no wheezing, and no accessory muscle usage. Abdominal: soft, nontender to palpation, no guarding, no appreciable organomegaly Ext: ROM intact. No gross muscle atrophy, no edema, no contractures Neuro: Speech clear, face symmetrical and CN II-XII grossly intact with no noted focal neuro deficits. A total of 33 minutes of time were spent preparing this complex discharge summary. Pt was discharged on 02/03/22 at 12:15 AM. Patient Condition at Discharge: Stable Plan - Discharge Summary Discharge Rx Participant: No New Discharge Prescriptions: New hydrALAZINE HCL [Apresoline] 50 mg PO TID 30 Days #90 tab Calcium Acetate [PhosLo] 667 mg PO TID-W/MEALS 30 Days #90 tab No Action No Known Home Medications Discharge Medication List No Known Home Medications 02/01/22 [History] Calcium Acetate [PhosLo] 667 mg PO TID-W/MEALS 30 Days #90 tab 02/03/22 [Rx] hydrALAZINE HCL [Apresoline] 50 mg PO TID 30 Days #90 tab 02/03/22 [Rx] Follow up Appointment(s)/Referral(s): William Merchant DO [Doctor of Osteopathic Medicine] - 1 Week Patient Instructions/Handouts: Dialysis Diet (DC), Self-Care Measures with a Chronic Disease (DC) Activity/Diet/Wound Care/Special Instructions: Activity: As tolerated. Take breaks as needed. Diet: Heart healthy and renal diet. Avoid salts, or foods with hidden salts such as canned or boxed foods and frozen dinners. Extra salt makes your heart work harder and traps the fluid in your body for longer. Special Instructions: Take all of your medications as directed and remember to keep all of your doctor's appointments and follow-up as needed. Please remember that it is of upper most important to be compliant with her dialysis. Missed dialysis sessions can result in detrimental consequences up to and including . Please resume previously scheduled dialysis treatments Friday02/04/22. Continue to follow closely with your medical intern, Dr. Huffman in [place]. Thank you for allowing us to participate in your care, it was truly a pleasure having you for our patient!!! Discharge Disposition: HOME SELF-CARE
[2022-02-03] MEDS ORDERED: hydrALAZINE HCL 25 MG TAB PO SCH (16:00)
[2022-02-03 17:44] LABS: % Iron Saturation 57.94 (15.00-50.00)
== END 2022-02-03 13:23 | disposition home or self-care (01) | DRG 682 ==
LOC: EC 21:26 → 6NMEDSUR 02-01 04:16 → OBSVTOIN 02-02 16:37 → UNDODISOB 02-03 13:23
PROVIDERS: ADMIT Internal Medicine; ATTEND Internal Medicine
PROC: 5A1D70Z Performance of Urinary Filtration, Intermittent, Less than 6 Hours Per Day (ICD-10-PCS; principal; 2022-02-02)
DX: I12.0 Hypertensive chronic kidney disease with stage 5 chronic kidney disease or end stage renal disease (principal); N18.6 End stage renal disease; T82.838A Hemorrhage due to vascular prosthetic devices, implants and grafts, initial encounter; E87.2 Acidosis; Z94.0 Kidney transplant status; Y65.8 Other specified misadventures during surgical and medical care; D63.1 Anemia in chronic kidney disease; E83.51 Hypocalcemia; E89.0 Postprocedural hypothyroidism; Z86.16 Personal history of COVID-19; J45.909 Unspecified asthma, uncomplicated; M89.8X9 Other specified disorders of bone, unspecified site; Z20.822 Contact with and (suspected) exposure to COVID-19; Z82.5 Family history of asthma and other chronic lower respiratory diseases; Z91.15 Patient's noncompliance with renal dialysis; Z99.2 Dependence on renal dialysis; Z71.89 Other specified counseling; Z87.19 Personal history of other diseases of the digestive system; Z88.2 Allergy status to sulfonamides; Z88.1 Allergy status to other antibiotic agents; Z91.041 Radiographic dye allergy status; Z86.14 Personal history of Methicillin resistant Staphylococcus aureus infection
CPT/HCPCS: 36415; 70450; 80048; 80053; 82728; 83540; 83550; 83735; 83880; 84100; 84484; 85025; 85027; 85610; 85730; 86706; 87340; 87635; 90935; 93005

== ENCOUNTER 2024-12-01 07:29 | Emergency (ER) | payer MEDICARE, OTHER ==
--- NOTE | 2024-12-01 08:02 | ED ---
Recheck HPI - General Chief Complaint: Recheck/Abnormal Lab/Rx Stated Complaint: Irrg labs Time Seen by Provider: 12/01/24 07:58 Source: patient, family, RN notes reviewed Mode of arrival: wheelchair Limitations: no limitations - History of Present Illness Initial Comments: 34 year old male presenting to the ER for evaluation of dialysis catheter issue. Patient attends dialysis [facility] his last treatment was on 11-26-2024. Patient states on Friday he presented to dialysis for treatment of fistula was found to be infiltrated. Since treatment center sent patient home with ice packs and instructed to come back on Friday for next treatment. Patient presented this morning and was found to have worsening of infiltration which prompted emergency department visit. He states left femoral fistula has been in place for approximately 10 years and was placed by a surgeon "the other side at the [facility]". He has followed up with a vascular surgeon about of [facility]. He is following up with nephrology, Dr. Suarez. Patient reports his left eye appears to be swollen. He denies any injuries or traumas. No fevers or chills. No other complaints - Related Data Home Medications Medication Instructions Recorded Confirmed No Known Home Medications 02/01/22 02/01/22 Previous Rx's Medication Instructions Recorded Calcium Acetate [PhosLo] 667 mg PO TID-W/MEALS 30 Days #90 02/03/22 tab hydrALAZINE HCL [Apresoline] 50 mg PO TID 30 Days #90 tab 02/03/22 Allergies Allergy/AdvReac Type Severity Reaction Status Date / Time Iodinated Contrast Media Allergy Rash/Hives Verified 12/01/24 07:34 azithromycin AdvReac Unknown Verified 12/01/24 07:34 Macrolide Antibiotics AdvReac Unknown Verified 12/01/24 07:34 Macrolide Immunosuppressant AdvReac Unknown Verified 12/01/24 07:34 NSAIDS (Non-Steroidal AdvReac Unknown Verified 12/01/24 07:34 Anti-Inflamma Sulfa (Sulfonamide AdvReac Unknown Verified 12/01/24 07:34 Antibiotics) sulfamethoxazole AdvReac Unknown Verified 12/01/24 07:34 [From Bactrim] trimethoprim [From Bactrim] AdvReac Unknown Verified 12/01/24 07:34 Review of Systems ROS Statement: Those systems with pertinent positive or pertinent negative responses have been documented in the HPI. ROS Other: All systems not noted in ROS Statement are negative. Past Medical History Past Medical History: Dialysis Additional Past Medical History / Comment(s): benign heart murmer, History of Any Multi-Drug Resistant Organisms: MRSA Date of last positivie culture/infection: 2005 MDRO Source:: L ring finger Past Surgical History: Tonsillectomy Additional Past Surgical History / Comment(s): 2 kidney transplants (1993,2006), uvulaectomy, sinus surgery, thyroidectomy, fistula Past Anesthesia/Blood Transfusion Reactions: No Reported Reaction Past Psychological History: Anxiety, Depression Smoking Status: Never smoker Past Alcohol Use History: None Reported Past Drug Use History: None Reported - Past Family History Mother Family Medical History: Renal Disease Additional Family Medical History / Comment(s): Mother from renal disease. Father History Unknown: Yes General Exam Limitations: no limitations General appearance: alert, in no apparent distress Respiratory exam: Present: normal lung sounds bilaterally. Absent: respiratory distress, wheezes, rales, rhonchi, stridor Cardiovascular Exam: Present: regular rate, normal rhythm, normal heart sounds. Absent: systolic murmur, diastolic murmur, rubs, gallop, clicks Extremities exam: Present: full ROM, normal capillary refill (2+ left DP/PT pulse), other (Left mid upper thigh fistula with palpable thrill.) Neurological exam: Present: alert, oriented X3, CN II-XII intact Skin exam: Present: warm, dry, intact, normal color. Absent: rash Course Vital Signs 12/01/24 12/01/24 07:30 10:31 Temperature 97.3 F L 98.0 F Pulse Rate 64 57 L Respiratory 16 18 Rate Blood Pressure 188/83 175/82 O2 Sat by Pulse 99 99 Oximetry - Reevaluation(s) Reevaluation #1: Case discussed with newspaper subscription solicitor vascular surgeon, Dr. Delvalle. He advised on discharge and close outpatient follow-up. He states the fistula is working. Medical Decision Making - Medical Decision Making Was pt. sent in by a medical professional or institution (, PA, HARDWARE ENGINEER, urgent care, hospital, or senior living...) When possible be specific @ -Patient sent by dialysis center for evaluation of malfunctioning fistula. Did you speak to anyone other than the patient for history (EMS, parent, family, police, friend...)? What history was obtained from this source @ -Significant other, at bedside, aiding in HPI and past medical history. Did you review nursing and triage notes (agree or disagree)? Why? @ -I reviewed and agree with nursing and triage notes Were old charts reviewed (outside hosp., previous admission, EMS record, old EKG, old radiological studies, urgent care reports/EKG's, senior living records)? Report findings @ -No old charts were reviewed Differential Diagnosis (chest pain, altered mental status, abdominal pain women, abdominal pain men, vaginal bleeding, weakness, fever, dyspnea, syncope, headache, dizziness, GI bleed, back pain, seizure, CVA, palpatations, mental h ealth, musculoskeletal)? @ -Infection, DVT, infiltration of fistula... This list is not meant to be all- inclusive EKG interpreted by me (3pts min.). @ -As above X-rays interpreted by me (1pt min.). @ -None done CT interpreted by me (1pt min.). @ -None done U/S interpreted by me (1pt. min.). @ -Ultrasound duplex of the left lower extremity graft showing patency of dialysis graft. What testing was considered but not performed or refused? (CT, X-rays, U/S, labs)? Why? @ -None What meds were considered but not given or refused? Why? @ -None Did you discuss the management of the patient with other professionals (professionals i.e. , PA, HARDWARE ENGINEER, lab, RT, psych nurse, social services designee, machine design engineer, teacher, staff nuclear weapons officer, case finisher)? Give summary @ -Yes, Case discussed with on-call vascular surgery, Dr. Delvalle. He advised on discharged with close outpatient follow-up as dialysis fistula is "working". Was smoking cessation discussed for >3mins.? @ -No Was critical care preformed (if so, how long)? @ -No Were there social determinants of health that impacted care today? How? (Homelessness, low income, unemployed, alcoholism, drug addiction, transportation, low edu. Level, literacy, decrease access to med. care, half-way, rehab)? @ -No Was there de-escalation of care discussed even if they declined (Discuss DNR or withdrawal of care, Hospice)? DNR status @ -No What co-morbidities impacted this encounter? (DM, HTN, Smoking, COPD, CAD, Cancer, CVA, ARF, Chemo, Hep., AIDS, mental health diagnosis, sleep apnea, morbid obesity)? @ -End-stage renal disease on dialysis. Was patient admitted / discharged? Hospital course, mention meds given and route, prescriptions, significant lab abnormalities, going to OR and other pertinent info. @ -Discharge. 34 year old male presenting to the ER for evaluation of dialysis catheter infiltration. Vitals within acceptable limits. Upon my evaluation, patient resting comfortably on stretcher no signs of acute distress. There is a left mid upper thigh dialysis graft noted with palpable thrill present. Left lower extremity is neurovascularly intact. Workup in the ER remarkable for hemoglobin of 11.1 likely due to end-stage renal disease. K 4.9. BUN and 98, creatinine 16.9 with a GFR of 3 patient is due for dialysis. EKG showing sinus bradycardia. No ST segment elevations or depressions. No T wave inversions or peaking of t waves. Ultrasound duplex of left lower extremity showing patency of dialysis graft. Laboratory studies and ultrasound findings were discussed with on-call vascular, Dr. Delvalle. He states graft is "working" and patient can be discharged home. Upon reevaluation, patient resting comfortably in exam room no signs of acute distress. Patient updated on laboratory and ultrasound results. I advised him to follow-up with dialysis and contact them for appointment as he has missed 2 treatments. While speaking with patient, significant other, at bedside, was calling dialysis center. Return parameters discussed. Patient discharged stable condition with follow-up to dialysis and PCP. Patient verbally expressed understanding agreement with care plan. Case discussed with ED attending, Dr. Goldberg. Undiagnosed new problem with uncertain prognosis? @ -No Drug Therapy requiring intensive monitoring for toxicity (Heparin, Nitro, Insulin, Cardizem)? @ -No Were any procedures done? @ -No Diagnosis/symptom? @ -Dialysis catheter issue Acute, or Chronic, or Acute on Chronic? @ -Acute Uncomplicated (without systemic symptoms) or Complicated (systemic symptoms)? @ -Complicated Side effects of treatment? @ -No Exacerbation, Progression, or Severe Exacerbation? @ -No Poses a threat to life or bodily function? How? (Chest pain, USA, SD, pneumonia, PE, COPD, DKA, ARF, appy, cholecystitis, CVA, Diverticulitis, Homicidal, Suicidal, threat to staff... and all critical care pts) @ -Yes, patient needs dialysis catheter for dialysis. If catheter is ma lfunctioning he cannot receive dialysis which can lead to electrolyte abnormalities and lethal cardiac arrhythmias. - Lab Data Result diagrams: 12/01/24 08:03 12/01/24 08:03 Lab Results 12/01/24 12/01/24 Range/Units 08:03 08:03 WBC 5.80 (4.50-10.00) 10*3/uL RBC 3.81 L (4.40-5.60) 10*6/uL Hgb 11.1 L (13.0-17.0) g/dL Hct 33.3 L (39.6-50.0) % MCV 87.4 (80.0-97.0) fL MCH 29.1 (27.0-32.0) pg MCHC 33.3 (32.0-37.0) g/dL Plt Count 168 (140-440) 10*3/uL MPV 10.8 (9.5-12.2) fL Immature Gran % (Auto) 0.2 % Neutrophils % 53.7 % Lymphocytes % 29.5 % Monocytes % 5.5 % Eosinophils % 10.2 % Basophils % 0.9 % Immature Gran # 0.01 (0.00-0.04) 10*3/uL Neutrophils # 3.12 (1.80-7.70) 10*3/uL Lymphocytes # 1.71 (0.90-5.00) 10*3/uL Monocytes # 0.32 (0.20-1.00) 10*3/uL Eosinophils # 0.59 H (0.04-0.35) 10*3/uL Basophils # 0.05 (0.00-0.10) 10*3/uL Sodium 140 (137-145) mmol/L Potassium 4.9 (3.5-5.1) mmol/L Chloride 102 (98-107) mmol/L Carbon Dioxide 15 L (22-30) mmol/L Anion Gap 23 mmol/L BUN 98 H (9-20) mg/dL Creatinine 16.93 H* (0.66-1.25) mg/dL Est GFR (CKD-EPI)AfAm 4 (>60 ml/min/1.73 sqM) Est GFR (CKD-EPI)NonAf 3 (>60 ml/min/1.73 sqM) Glucose 117 H (74-99) mg/dL Calcium 8.8 (8.4-10.2) mg/dL Total Bilirubin 0.8 (0.2-1.3) mg/dL AST 11 L (17-59) U/L ALT 7 (4-49) U/L Alkaline Phosphatase 73 (38-126) U/L Total Protein 7.8 (6.3-8.2) g/dL Albumin 4.6 (3.5-5.0) g/dL - EKG Data -: EKG Interpreted by Me EKG Comments: EKG taken at 8: 07 showing a sinus bradycardia. No ST segment elevations or depressions. No T wave inversions. Ventricular rate 59, SC interval 165, QRS duration 99, QT/QTc 421/420. - Radiology Data Radiology results: report reviewed, image reviewed Disposition Clinical Impression: Chronic kidney disease, Other complication of arteriovenous dialysis fistula Disposition: HOME SELF-CARE Condition: Stable Additional Instructions: Follow-up with dialysis for treatment. Return to the ER for any new or worsening symptoms . Is patient prescribed a controlled substance at d/c from ED?: No Referrals: None,Stated [Primary Care Provider] - 1-2 days Kyle Palacio DO [Doctor of Osteopathic Medicine] - 1-2 days Zach Cole DO [STAFF PHYSICIAN] - 1-2 days Forms: Area PCPs Time of Disposition: 10:04
[2024-12-01 08:39] LABS: Basophils # (A) 0.05 10*3/uL (0.00-0.10); Basophils % (A) 0.9 %; Eosinophils # (A) 0.59 10*3/uL (0.04-0.35); Eosinophils % (A) 10.2 %; HCT 33.3 % (39.6-50.0); HGB 11.1 g/dL (13.0-17.0); Lymphocytes # (A) 1.71 10*3/uL (0.90-5.00); Lymphocytes % (A) 29.5 %; MCH 29.1 pg (27.0-32.0); MCHC 33.3 g/dL (32.0-37.0); MCV 87.4 fL (80.0-97.0); Mean Platelet Volume 10.8 fL (9.5-12.2); Monocytes # (A) 0.32 10*3/uL (0.20-1.00); Monocytes % (A) 5.5 %; Neutrophils # (A) 3.12 10*3/uL (1.80-7.70); Neutrophils % (A) 53.7 %; Platelet Count 168 10*3/uL (140-440); RBC 3.81 10*6/uL (4.40-5.60); RDW 14.6 % (11.5-14.5)
[2024-12-01 08:43] LABS: ALT 7 U/L (4-49); AST 11 U/L (17-59); Albumin 4.6 g/dL (3.5-5.0); Alkaline Phosphatase 73 U/L (38-126); Anion Gap 23 mmol/L; Blood Urea Nitrogen 98 mg/dL (9-20); Calcium 8.8 mg/dL (8.4-10.2); Carbon Dioxide 15 mmol/L (22-30); Chloride 102 mmol/L (98-107); Glucose 117 mg/dL (74-99); Potassium 4.9 mmol/L (3.5-5.1); Sodium 140 mmol/L (137-145); Total Bilirubin 0.8 mg/dL (0.2-1.3); Total Protein 7.8 g/dL (6.3-8.2)
[2024-12-01 08:49] LABS: African American GFR (CKD) 4 (>60 ml/min/1.73 sqM); Non-African American GFR(CKD) 3 (>60 ml/min/1.73 sqM)
--- NOTE | 2024-12-01 08:56 | US ---
EXAMINATION TYPE: US duplex graft LE LT DATE OF EXAM: 12/01/2024 COMPARISON: NONE CLINICAL INDICATION: Male, 34 years old with history of graft patency; TECHNIQUE: Left thigh dialysis graft scanned FINDINGS: Color and spectral waveform seen within graft Visualize bulged seen at pt AOC Lt mid/medial thigh graft, color & spectral waveform seen IMPRESSION: Patent dialysis graft identified. [facility], Workstation: [id number], 12/01/2024 8:54 AM
[2024-12-01 10:32] VITALS: BP 175/82; PULSE 57; RESP 18; TEMP 98
== END 2024-12-01 10:37 | disposition home or self-care (01) ==
LOC: EC 07:29
DX: T82.590A Other mechanical complication of surgically created arteriovenous fistula, initial encounter (principal); N18.6 End stage renal disease; R00.1 Bradycardia, unspecified; Z88.1 Allergy status to other antibiotic agents; Z88.2 Allergy status to sulfonamides; Z88.6 Allergy status to analgesic agent; Z91.041 Radiographic dye allergy status; Z99.2 Dependence on renal dialysis; Z94.0 Kidney transplant status
CPT/HCPCS: 36415; 80053; 85025; 93005; 99284

== ENCOUNTER 2025-01-05 07:33 | Day surgery (SDC) | payer MEDICARE, OTHER ==
[2025-01-04 09:07] VITALS: BMI 24.4
[2025-01-05 08:04] VITALS: TEMP 97.9
[2025-01-05] MEDS: IV FLUID CONTINUATION 1,000 ML IV ONE (08:14)
[2025-01-05] MEDS: methylPREDNISolone SOD SUCCI 125 MG/2 ML VIAL IV STA (08:34)
[2025-01-05] MEDS: diphenhydrAMINE 50 MG/ML 1 ML VIAL IVP STA (08:34)
[2025-01-05] MEDS: FAMOTIDINE 20 MG/2 ML VIAL IV STA (08:34)
[2025-01-05] MEDS: EMPTY BAG 1 BAG with SODIUM CHLORIDE 0.9% 1,000 ML IV ONE (08:37)
[2025-01-05] MEDS: HEPARIN SODIUM (1,000 UNIT/ML) 1,000 UNIT in SODIUM CHLORIDE 0.9% 1,000 ML IRRIGATION ONE (08:53)
[2025-01-05] MEDS: MIDAZOLAM 2 MG/2 ML VIAL IVP ONE (09:03)
[2025-01-05] MEDS: fentaNYL (PF) 50 MCG/ML 2 ML AMP IVP ONE (09:03)
[2025-01-05] MEDS: LIDOCAINE 1% INJ 10MG/ML (20 ML MDV) SQ ONE (09:05)
[2025-01-05] MEDS: IOPAMIDOL-370 100ML BTL INJ ONE (09:44)
[2025-01-05 10:22] LABS: Basophils # (A) 0.05 10*3/uL (0.00-0.10); Basophils % (A) 0.7 %; Eosinophils # (A) 0.55 10*3/uL (0.04-0.35); Eosinophils % (A) 7.5 %; HCT 42.3 % (39.6-50.0); HGB 13.4 g/dL (13.0-17.0); Lymphocytes # (A) 1.91 10*3/uL (0.90-5.00); Lymphocytes % (A) 26.2 %; MCH 28.7 pg (27.0-32.0); MCHC 31.7 g/dL (32.0-37.0); MCV 90.6 fL (80.0-97.0); Mean Platelet Volume 10.4 fL (9.5-12.2); Monocytes # (A) 0.44 10*3/uL (0.20-1.00); Neutrophils # (A) 4.34 10*3/uL (1.80-7.70); Neutrophils % (A) 59.5 %; Platelet Count 210 10*3/uL (140-440); RBC 4.67 10*6/uL (4.40-5.60); RDW 15.9 % (11.5-14.5)
--- NOTE | 2025-01-05 10:26 | P.OP ---
Date of Procedure: 01/05/25 Preoperative Diagnosis: 1: End-stage renal disease, hemodialysis dependent. 2: Dysfunction left femoral artery to vein AV fistula. Postoperative Diagnosis: Same plus in-stent stenosis AV fistula and within a stented segment of the inferior vena cava. Procedure(s) Performed: 1: Cannulation left femoral AV graft with placement of a 6 Divehi sheath. 2: Fistulogram and inferior venacavogram. 3: Balloon dilation in-stent stenosis of AV fistula as well as stented segment of the inferior vena cava. Anesthesia: local (2% Xylocaine with multiple doses of fentanyl and Versed.) Surgeon: Kyle Palacio Estimated Blood Loss (ml): 10 Urine output (ml): 0 Pathology: none sent Condition: stable Disposition: no change Indications for Procedure: Patient is a 34-year-old male with a longstanding history of renal failure which is hemodialysis dependent. He has a left femoral artery to vein loop AV fistula which all functional demonstrates prolonged bleeding post decannulation. Duplex imaging of the fistula demonstrated a stenosis and the patient is offered fistulogram with possible percutaneous intervention. The procedure, risk and benefits were discussed with the patient. All questions were answered patient's satisfaction. Consent form was signed. Description of Procedure: Patient was brought to the special procedure suite. The left groin was sterilely prepped and draped in usual manner. Initially the patient was a dministered 2 mg of Versed and 50 mcg of fentanyl intravenously for moderate conscious sedation purposes. Additional aliquots of both the Versed and fentanyl were administered during the procedure itself. 2% Xylocaine was utilized for local anesthesia tissues overlying the loop graft. In an antegrade direction the fistula was cannulated with a micropuncture needle. Micropuncture guidewire was advanced in the needle was withdrawn. Micropuncture sheath and dilator were advanced over the guidewire. Guidewire and dilator were withdrawn and a 0.035 inch J-tip guidewire was advanced without difficulty. The micropuncture sheath was withdrawn and replaced with a 6 Divehi sheath. Fistulogram was then performed. This demonstrated to previously placed stents in the outflow track with stenosis within the stented segment. Under fluoroscopic guidance guidewire was advanced into the iliac venous system. Stenting within the iliac system was identified and the stenting extended into the inferior vena cava. Initially a 6 mm balloon dilator was advanced into the stenotic stented segment and balloon dilation of this segment was performed. Completion fistulogram demonstrated incomplete resolution and a 7 mm and eventually 8 mm balloon catheters were utilized to balloon dilate this segment. Completion fistulogram demonstrated significant improvement in this stented segment. During the fistulogram collateral flow from the left pelvic veins to the right pelvic good venous system was identified prompting iliac and inferior vena cava imaging with contrast. The iliac segment was patent however a severe stenosis within the stented segment of the cava was noted. The cava measured to approximately 11 mm and a 10 mm balloon catheter was then advanced over guidewire and balloon dilation of the segment was performed. Completion venography demonstrated marked reduction in iliac vein stenosis. The 6 mm balloon was then inflated in the fistula and retrograde fistulogram was performed. This demonstrated no inflow stenosis. With the above findings noted the guidewire and catheter were withdrawn and the sheath was withdrawn. Puncture site was closed with 3-0 nylon suture. Appro priate dressing was applied. Patient tolerated procedure well and was taken to the outpatient surgical area in satisfactory and stable condition. Total fluoroscopy time: 5.5 minutes. Total moderate conscious sedation time: 43 minutes. Total contrast volume utilized: 30 mL of [id number]. Plan - Discharge Summary Discharge Rx Participant: No New Discharge Prescriptions: No Action amLODIPine [Norvasc] 10 mg PO QAM Clopidogrel [Plavix] 75 mg PO QAM carvediloL [Coreg] 25 mg PO BID Aspirin EC [Ecotrin Low Dose] 81 mg PO QAM Sacubitril/Valsartan [Entresto 49 mg-51 mg Tablet] 1 each PO BID Lagevrio 3 cap PO TID-W/MEALS Discharge Medication List Aspirin EC [Ecotrin Low Dose] 81 mg PO QAM 01/04/25 [History] Clopidogrel [Plavix] 75 mg PO QAM 01/04/25 [History] Lagevrio 3 cap PO TID-W/MEALS 01/04/25 [History] Sacubitril/Valsartan [Entresto 49 mg-51 mg Tablet] 1 each PO BID 01/04/25 [Hi story] amLODIPine [Norvasc] 10 mg PO QAM 01/04/25 [History] carvediloL [Coreg] 25 mg PO BID 01/04/25 [History] Follow up Appointment(s)/Referral(s): Kyle Palacio DO [Doctor of Osteopathic Medicine] - 01/20/25 9:45 am Patient Instructions/Handouts: Fistulogram (DC) Activity/Diet/Wound Care/Special Instructions: Resume normal renal diet and activity No driving x24 hours Follow up
--- NOTE | 2025-01-05 10:28 | IR ---
EXAMINATION TYPE: IR venogram lower ext LT DATE OF EXAM: 01/05/2025 10:09 AM COMPARISON: Pre Operative Images if available both CT/MRI or plain film CLINICAL INDICATION: Male, 34 years old with history of FISTULA STENOSIS; TECHNIQUE: IR venogram lower ext LT, multiple fluoroscopic images provided for procedure. DAP: 40.3 mGym2 Gycm2 uGym2 cGycm2 or equivalent. FINDINGS: IMPRESSION: 1. Report was generated for administrative purposes only. 2. Please see the operative/procedural note for further details. [facility], , 01/05/2025 10:26 AM
[2025-01-05 10:34] LABS: African American GFR (CKD) 5 (>60 ml/min/1.73 sqM); Anion Gap 21 mmol/L; Blood Urea Nitrogen 68 mg/dL (9-20); Calcium 9.1 mg/dL (8.4-10.2); Carbon Dioxide 24 mmol/L (22-30); Chloride 96 mmol/L (98-107); Glucose 109 mg/dL (74-99); Non-African American GFR(CKD) 4 (>60 ml/min/1.73 sqM); Sodium 141 mmol/L (137-145)
[2025-01-05] MEDS: KETOROLAC 15 MG/ML 1 ML VIAL IVP STA (11:13)
[2025-01-05 11:29] VITALS: PULSE 67; RESP 16
[2025-01-05 11:36] VITALS: BP 154/82
== END 2025-01-05 12:06 | disposition home or self-care (01) ==
LOC: CATHCVL 07:33
PROVIDERS: ATTEND Surgery
DX: T82.858A Stenosis of other vascular prosthetic devices, implants and grafts, initial encounter (principal); N18.6 End stage renal disease; Z79.02 Long term (current) use of antithrombotics/antiplatelets; Z79.899 Other long term (current) drug therapy; Z88.1 Allergy status to other antibiotic agents; Z91.041 Radiographic dye allergy status; Z88.6 Allergy status to analgesic agent; Z88.8 Allergy status to other drugs, medicaments and biological substances; Y83.8 Other surgical procedures as the cause of abnormal reaction of the patient, or of later complication, without mention of misadventure at the time of the procedure
CPT/HCPCS: 80048; 85025; 36902; C1769; C1725 ×2; J2250; J1200; J2003; J3010; J1644; J1885; Q9967; J2919; J1308

== ENCOUNTER 2025-02-11 06:18 | Emergency (ER) | payer MEDICARE, OTHER ==
--- NOTE | 2025-02-11 06:59 | ED ---
Recheck HPI - General Chief Complaint: Recheck/Abnormal Lab/Rx Stated Complaint: Blood pressure is high Time Seen by Provider: 02/11/25 06:58 Source: patient, family (je), RN notes reviewed, old records reviewed Mode of arrival: wheelchair Limitations: no limitations - History of Present Illness Initial Comments: 34-year-old male presented the ER for evaluation of hypertension. Patient is accompanied by julian who is aiding in HPI and past medical history. Past medical history significant of end-stage renal disease on dialysis, asthma, GERD, hypertension, hyperlipidemia. He attends dialysis Friday, Friday and Friday. His last treatment was on 02/09/25. Patient does not produce urine. Patient states upon arrival at dialysis today vital signs were taken and patient was found to be hypertensive at 256/127 around 5:20 AM. Patient states he did take the prescribed carvedilol 25 mg at that time. Patient does admit to being noncompliant with all medications as he states "I forget". Patient is prescribed carvedilol, Entresto, amlodipine and Plavix. Patient denies any headache, dizziness, lightheadedness, chest pain or shortness of breath. He does report a left shoulder/arm "soreness", he contributes this to muscles. Denies any nausea, vomiting or diaphoresis. Patient did consume marijuana gummy this morning prior to dialysis per julian. - Related Data Home Medications Medication Instructions Recorded Confirmed Clopidogrel [Plavix] 75 mg PO DAILY 01/04/25 02/11/25 amLODIPine [Norvasc] 10 mg PO DAILY 01/04/25 02/11/25 carvediloL [Coreg] 25 mg PO BID 01/04/25 02/11/25 Sacubitril/Valsartan [Entresto 97 1 tab PO BID 02/11/25 02/11/25 mg-103 mg Tablet] Allergies Allergy/AdvReac Type Severity Reaction Status Date / Time Iodinated Contrast Media Allergy Rash/Hives Verified 02/11/25 13:30 azithromycin AdvReac hx of Verified 02/11/25 13:30 kidney transplant Macrolide Antibiotics AdvReac hx of Verified 02/11/25 13:30 kidney transplant Macrolide Immunosuppressant AdvReac hx of Verified 02/11/25 13:30 kidney transplant NSAIDS (Non-Steroidal AdvReac hx of Verified 02/11/25 13:30 Anti-Inflamma kidney transplant Sulfa (Sulfonamide AdvReac hx of Verified 02/11/25 13:30 Antibiotics) kidney transplant sulfamethoxazole AdvReac hx of Verified 02/11/25 13:30 [From Bactrim] kidney transplant trimethoprim [From Bactrim] AdvReac hx of Verified 02/11/25 13:30 kidney transplant Review of Systems ROS Statement: Those systems with pertinent positive or pertinent negative responses have been documented in the HPI. ROS Other: All systems not noted in ROS Statement are negative. Past Medical History Past Medical History: Asthma, Dialysis, GERD/Reflux, Hyperlipidemia, Hypertension, Renal Disease, Sleep Apnea/CPAP/BIPAP Additional Past Medical History / Comment(s): benign heart murmer, Hemodialysis. No CPAP-pt lost CPAP machine in recent move. History of Any Multi-Drug Resistant Organisms: MRSA Date of last positivie culture/infection: 2005 MDRO Source:: L ring finger Past Surgical History: Orthopedic Surgery, Tonsillectomy Additional Past Surgical History / Comment(s): 2 kidney transplants (1993,2006), uvulaectomy, sinus surgery, thyroidectomy, fistula, AICD, surgeries to both knees, Tenkoff x2 Past Anesthesia/Blood Transfusion Reactions: No Reported Reaction Type of Cardiac Device: AICD Device Placement Date:: 2022 Past Psychological History: Anxiety, Depression Smoking Status: Never smoker Past Alcohol Use History: None Reported Past Drug Use History: Marijuana - Past Family History Mother Family Medical History: Renal Disease Additional Family Medical History / Comment(s): Mother from renal disease. Father History Unknown: Yes Family Medical History: Unable to Obtain General Exam Limitations: no limitations General appearance: alert, in no apparent distress Respiratory exam: Present: normal lung sounds bilaterally. Absent: respiratory distress, wheezes, rales, rhonchi, stridor Cardiovascular Exam: Present: regular rate, normal rhythm, normal heart sounds. Absent: systolic murmur, diastolic murmur, rubs, gallop, clicks GI/Abdominal exam: Present: soft, normal bowel sounds. Absent: distended, tenderness, guarding, rebound, rigid Extremities exam: Present: normal inspection, full ROM, normal capillary refill. Absent: tenderness, pedal edema, joint swelling, calf tenderness Neurological exam: Present: alert, oriented X3, CN II-XII intact Skin exam: Present: warm, dry, intact, normal color, other (Dialysis fistula noted to left inner thigh. No overlying erythema, warmth or drainage. Palpable thrill noted.). Absent: rash Course Vital Signs 02/11/25 02/11/25 02/11/25 06:31 08:18 08:37 Temperature 97.6 F Pulse Rate 72 60 59 L Pulse Rate [ Section Crews Activities Clerk ] Respiratory 18 18 18 Rate Blood Pressure 204/99 188/94 192/97 Blood Pressure [Left Arm] O2 Sat by Pulse 99 98 99 Oximetry 02/11/25 02/11/25 02/11/25 10:05 12:15 14:00 Temperature Pulse Rate 61 61 61 Pulse Rate [ Section Crews Activities Clerk ] Respiratory 18 20 20 Rate Blood Pressure 168/88 151/79 137/61 Blood Pressure [Left Arm] O2 Sat by Pulse 99 98 96 Oximetry 02/11/25 18:43 Temperature 98 F Pulse Rate Pulse Rate [ 67 Section Crews Activities Clerk ] Respiratory 18 Rate Blood Pressure Blood Pressure 174/80 [Left Arm] O2 Sat by Pulse Oximetry - Reevaluation(s) Reevaluation #1: 02/11/25 09:22 Case discussed with on-call nephrology, . He advised on restarting patient's home medications along with 10mg IV hydralazine 4 times daily for systolic blood pressures over 160. He will order dialysis. 02/11/25 15:25 was perfect served regarding postdialysis orders. He reports no orders are needed and patient can be discharged home Medical Decision Making - Medical Decision Making Was pt. sent in by a medical professional or institution (, PA, CASINO ACCOUNTANT, urgent care, hospital, or halfway...) When possible be specific @ -Patient sent by dialysis for evaluation of hypertension Did you speak to anyone other than the patient for history (EMS, parent, family, police, friend...)? What history was obtained from this source @ -Patient's fianc, at bedside, aiding in HPI past medical history Did you review nursing and triage notes (agree or disagree)? Why? @ -I reviewed and agree with nursing and triage notes Were old charts reviewed (outside hosp., previous admission, EMS record, old EKG, old radiological studies, urgent care reports/EKG's, halfway records)? Report findings @ -Prior ER visit Differential Diagnosis (chest pain, altered mental status, abdominal pain women, abdominal pain men, vaginal bleeding, weakness, fever, dyspnea, syncope, headache, dizziness, GI bleed, back pain, seizure, CVA, palpatations, mental health, musculoskeletal)? @ -[Hypertension, hypertensive emergency, electrolyte abnormality,... This list is not meant to be all-inclusive EKG interpreted by me (3pts min.). @ -As above X-rays interpreted by me (1pt min.). @ -CXR interpreted me negative for focal consolidation, pneumothorax or pleural effusion. Cardiac defibrillator noted CT interpreted by me (1pt min.). @ -None done U/S interpreted by me (1pt. min.). @ -None done What testing was considered but not performed or refused? (CT, X-rays, U/S, labs)? Why? @ -None What meds were considered but not given or refused? Why? @ -Coreg considered however patient took home dose prior to arrival. Did you discuss the management of the patient with other professionals (professionals i.e. , PA, CASINO ACCOUNTANT, lab, RT, psych nurse, social security specialist, repair coil winder, teacher, facility security officer, business case analyst)? Give summary @ -Yes, Case discussed with on-call nephrology, . He personally evaluated patient in emergency department. He is requesting to be started patient on home antihypertensives and IV hydralazine. He will order dialysis. He was then perfect served for post dialysis orders. His he is not requesting any further orders and reports patient can be discharged home after completion of dialysis. Was smoking cessation discussed for >3mins.? @ -No Was critical care preformed (if so, how long)? @ -No Were there social determinants of health that impacted care today? How? (Homelessness, low income, unemployed, alcoholism, drug addiction, transportation, low edu. Level, literacy, decrease access to med. care, alf, rehab)? @ -No Was there de-escalation of care discussed even if they declined (Discuss DNR or withdrawal of care, Hospice)? DNR status @ -No What co-morbidities impacted this encounter? (DM, HTN, Smoking, COPD, CAD, Cancer, CVA, ARF, Chemo, Hep., AIDS, mental health diagnosis, sleep apnea, morbid obesity)? @ -End-stage renal disease, hypertension,Asthma, GERD, hyperlipidemia Was patient admitted / discharged? Hospital course, mention meds given and route, prescriptions, significant lab abnormalities, going to OR and other pertinent info. @ -Discharge. 34-year-old male presented the ER sent from dialysis for evaluation of hypertension. On arrival patient hypertensive 204/99, vitals otherwise stable. Patient in no signs of acute distress nontoxic-appearing. No acute neurological findings on exam. Laboratory studies obtained remarkable for WBC 7.3. Hemoglobin 12.2 this appears to be patient's baseline. Potassium 3.9. BUN of 44 with a creatinine of 12.71 GFR of 5, baseline. Given patient reporting left arm discomfort, troponin obtained and negative, 0.016. Magnesium 2.4. Patient provided p.o. Norvasc and Entresto, at home dosing for hypertension. Case was discussed with on-call nephrology, Dr. Suarez, he advised on restarting patient's home antihypertensive medications. He did personally evaluate patient in the emergency department and ordered dialysis treatment. After dialysis treatment patient can be discharged home if blood pressure improves per nephrology. Postdialysis blood pressure improvement to 174/80, after receiving Norvasc and Entresto. IV hydralazine 10 mg as needed was ordered during emergency department stay. Re evaluation I did strongly recommend patient take all medications as prescribed. Strict return parameters discussed. Patient discharged stable condition advised to follow up with PCP and dialysis as scheduled. Patient verbally expressed understanding and agreement with care plan. Case discussed with ED attending, Dr. Elena. Undiagnosed new problem with uncertain prognosis? @ -No Drug Therapy requiring intensive monitoring for toxicity (Heparin, Nitro, Insulin, Cardizem)? @ -No Were any procedures done? @ -No Diagnosis/symptom? @ -Hypertension/medication noncompliance/end-stage renal disease on dialysis Acute, or Chronic, or Acute on Chronic? @ -Acute Uncomplicated (without systemic symptoms) or Complicated (systemic symptoms)? @ -Complicated Side effects of treatment? @ -No Exacerbation, Progression, or Severe Exacerbation? @ -No Poses a threat to life or bodily function? How? (Chest pain, USA, NV, pneumonia, PE, COPD, DKA, ARF, appy, cholecystitis, CVA, Diverticulitis, Homicidal, Suicidal, threat to staff... and all critical care pts) @ -Possibly - Lab Data Result diagrams: 02/11/25 08:11 02/11/25 08:11 Lab Results 02/11/25 02/11/25 02/11/25 Range/Units 08:11 08:11 08:11 WBC 7.33 (4.50-10.00) 10*3/uL RBC 4.28 L (4.40-5.60) 10*6/uL Hgb 12.2 L (13.0-17.0) g/dL Hct 38.2 L (39.6-50.0) % MCV 89.3 (80.0-97.0) fL MCH 28.5 (27.0-32.0) pg MCHC 31.9 L (32.0-37.0) g/dL Plt Count 229 (140-440) 10*3/uL MPV 10.2 (9.5-12.2) fL Immature Gran % (Auto) 0.1 % Neutrophils % 51.5 % Lymphocytes % 29.2 % Monocytes % 6.8 % Eosinophils % 11.3 % Basophils % 1.1 % Immature Gran # 0.01 (0.00-0.04) 10*3/uL Neutrophils # 3.77 (1.80-7.70) 10*3/uL Lymphocytes # 2.14 (0.90-5.00) 10*3/uL Monocytes # 0.50 (0.20-1.00) 10*3/uL Eosinophils # 0.83 H (0.04-0.35) 10*3/uL Basophils # 0.08 (0.00-0.10) 10*3/uL PT 11.1 (10.0-12.5) sec INR 1.0 (<1.2) APTT 27.4 (22.0-30.0) sec Sodium 139 (137-145) mmol/L Potassium 3.9 (3.5-5.1) mmol/L Chloride 97 L (98-107) mmol/L Carbon Dioxide 24 (22-30) mmol/L Anion Gap 18 mmol/L BUN 44 H (9-20) mg/dL Creatinine 12.71 H* (0.66-1.25) mg/dL Est GFR (CKD-EPI)AfAm 5 (>60 ml/min/1.73 sqM) Est GFR (CKD-EPI)NonAf 5 (>60 ml/min/1.73 sqM) Glucose 115 H (74-99) mg/dL Calcium 8.5 (8.4-10.2) mg/dL Magnesium 2.4 H (1.6-2.3) mg/dL Total Bilirubin 0.7 (0.2-1.3) mg/dL AST 14 L (17-59) U/L ALT 7 (4-49) U/L Alkaline Phosphatase 103 (38-126) U/L Troponin I (0.000-0.034) ng/mL Total Protein 8.3 H (6.3-8.2) g/dL Albumin 4.8 (3.5-5.0) g/dL / Range/Units 08:11 WBC (4.50-10.00) 10*3/uL RBC (4.40-5.60) 10*6/uL Hgb (13.0-17.0) g/dL Hct (39.6-50.0) % MCV (80.0-97.0) fL MCH (27.0-32.0) pg MCHC (32.0-37.0) g/dL Plt Count (140-440) 10*3/uL MPV (9.5-12.2) fL Immature Gran % (Auto) % Neutrophils % % Lymphocytes % % Monocytes % % Eosinophils % % Basophils % % Immature Gran # (0.00-0.04) 10*3/uL Neutrophils # (1.80-7.70) 10*3/uL Lymphocytes # (0.90-5.00) 10*3/uL Monocytes # (0.20-1.00) 10*3/uL Eosinophils # (0.04-0.35) 10*3/uL Basophils # (0.00-0.10) 10*3/uL PT (10.0-12.5) sec INR (<1.2) APTT (22.0-30.0) sec Sodium (137-145) mmol/L Potassium (3.5-5.1) mmol/L Chloride (98-107) mmol/L Carbon Dioxide (22-30) mmol/L Anion Gap mmol/L BUN (9-20) mg/dL Creatinine (0.66-1.25) mg/dL Est GFR (CKD-EPI)AfAm (>60 ml/min/1.73 sqM) Est GFR (CKD-EPI)NonAf (>60 ml/min/1.73 sqM) Glucose (74-99) mg/dL Calcium (8.4-10.2) mg/dL Magnesium (1.6-2.3) mg/dL Total Bilirubin (0.2-1.3) mg/dL AST (17-59) U/L ALT (4-49) U/L Alkaline Phosphatase (38-126) U/L Troponin I 0.016 (0.000-0.034) ng/mL Total Protein (6.3-8.2) g/dL Albumin (3.5-5.0) g/dL - EKG Data -: EKG Interpreted by Me EKG Comments: EKG taken at 6: 49 showing a sinus rhythm. No ST segment elevations or depressions. Ventricular rate 66, parable 166, QRS duration 97, QT/QTc 449/463 - Radiology Data Radiology results: report reviewed, image reviewed Disposition Clinical Impression: Chronic kidney disease, Noncompliance with medications, Elevated blood pressure reading Disposition: HOME SELF-CARE Condition: Stable Additional Instructions: Follow closely with PCP. Attend dialysis as scheduled. I highly recommend you take all medications as prescribed. Return to the ER for any new or worsening concerns. Is patient prescribed a controlled substance at d/c from ED?: No Referrals: None,Stated [Primary Care Provider] - 1-2 days Forms: Area PCPs Time of Disposition: 15:05
[2025-02-11 08:19] LABS: Basophils # (A) 0.08 10*3/uL (0.00-0.10); Basophils % (A) 1.1 %; Eosinophils # (A) 0.83 10*3/uL (0.04-0.35); Eosinophils % (A) 11.3 %; HCT 38.2 % (39.6-50.0); HGB 12.2 g/dL (13.0-17.0); Lymphocytes # (A) 2.14 10*3/uL (0.90-5.00); Lymphocytes % (A) 29.2 %; MCH 28.5 pg (27.0-32.0); MCHC 31.9 g/dL (32.0-37.0); MCV 89.3 fL (80.0-97.0); Monocytes # (A) 0.50 10*3/uL (0.20-1.00); Monocytes % (A) 6.8 %; Neutrophils # (A) 3.77 10*3/uL (1.80-7.70); Neutrophils % (A) 51.5 %; Platelet Count 229 10*3/uL (140-440); RBC 4.28 10*6/uL (4.40-5.60); RDW 14.9 % (11.5-14.5); WBC 7.33 10*3/uL (4.50-10.00)
[2025-02-11 08:30] LABS: ALT 7 U/L (4-49); AST 14 U/L (17-59); African American GFR (CKD) 5 (>60 ml/min/1.73 sqM); Albumin 4.8 g/dL (3.5-5.0); Alkaline Phosphatase 103 U/L (38-126); Anion Gap 18 mmol/L; Blood Urea Nitrogen 44 mg/dL (9-20); Calcium 8.5 mg/dL (8.4-10.2); Carbon Dioxide 24 mmol/L (22-30); Chloride 97 mmol/L (98-107); Glucose 115 mg/dL (74-99); Magnesium 2.4 mg/dL (1.6-2.3); Non-African American GFR(CKD) 5 (>60 ml/min/1.73 sqM); Potassium 3.9 mmol/L (3.5-5.1); Sodium 139 mmol/L (137-145); Total Protein 8.3 g/dL (6.3-8.2)
[2025-02-11 08:34] LABS: INR 1.0 (<1.2); Partial Thromboplastin Time 27.4 sec (22.0-30.0); Prothrombin Time 11.1 sec (10.0-12.5)
--- NOTE | 2025-02-11 08:37 | XR ---
EXAMINATION TYPE: XR chest 2V DATE OF EXAM: 02/11/2025 8:31 AM COMPARISON: None CLINICAL INDICATION: Male, 34 years old with history of HTN/left arm soreness; [facility] TECHNIQUE: XR chest 2V Frontal and lateral views of the chest. FINDINGS: Lungs/Pleura: There is no evidence of pleural effusion, focal consolidation, or pneumothorax. Pulmonary vascularity: Unremarkable. Heart/mediastinum: Cardiomediastinal silhouette is prominent in size. Single-lead cardiac conduction device overlying the left hemithorax with lead projecting over the sternum. Musculoskeletal: No acute osseous pathology. IMPRESSION: No acute cardiopulmonary disease/process. [facility], , 02/11/2025 8:35 AM
[2025-02-11] MEDS: hydrALAZINE HCL 20 MG/ML 1 ML VIAL IVP SCH (10:07)
[2025-02-11] MEDS: amLODIPine 10 MG TAB PO STA (10:10)
[2025-02-11] MEDS: SACUBITRIL/VALSARTAN 49 MG-51 MG TABLET PO SCH (10:12)
[2025-02-11] MEDS ORDERED: hydrALAZINE HCL 20 MG/ML 1 ML VIAL IVP PRN (11:15)
--- NOTE | 2025-02-11 11:18 | P.NPCON ---
History of Present Illness - Reason for Consult end stage renal disease - History of Present Illness Reason for consultation: End-stage renal disease History of present illness: Patient is a 34-year-old male seen in renal consultation for end-stage renal disease. Patient was seen and examined in the emergency room. Patient went to hemodialysis this morning but was sent to the hospital due to elevated blood pressure. Patient's blood pressure was over 250 systolic. Patient states he has not been taking his antihypertensives at home on a regular basis. Patient is not sure exactly what he is on either. Patient states that he usually forgets to take his medications. He denies chest pain or shortness of breath. No vomiting or diarrhea. Oral intake has been fair. Last hemodialysis was Friday. He does not make urine. Denies history of diabetes or coronary artery disease. Patient did receive a dose of amlodipine as well as his home dose of Entresto. Blood pressure is improved. Vital signs are stable. General: No acute distress. HEENT: Head exam is unremarkable. LUNGS: No audible rhonchi or wheezes. HEART: Rate and Rhythm are regular. ABDOMEN: Non-tender. EXTREMITITES: No edema. Past Medical History Past Medical History: Asthma, Dialysis, GERD/Reflux, Hyperlipidemia, Hypertension, Renal Disease, Sleep Apnea/CPAP/BIPAP Additional Past Medical History / Comment(s): benign heart murmer, Hemodialysis. No CPAP-pt lost CPAP machine in recent move. History of Any Multi-Drug Resistant Organisms: MRSA Date of last positivie culture/infection: 2005 MDRO Source:: L ring finger Past Surgical History: Orthopedic Surgery, Tonsillectomy Additional Past Surgical History / Comment(s): 2 kidney transplants (1993,2006), uvulaectomy, sinus surgery, thyroidectomy, fistula, AICD, surgeries to both knees, Tenkoff x2 Past Anesthesia/Blood Transfusion Reactions: No Reported Reaction Type of Cardiac Device: AICD Device Placement Date:: 2022 Past Psychological History: Anxiety, Depression Smoking Status: Never smoker Past Alcohol Use History: None Reported Past Drug Use History: Marijuana - Past Family History Mother Family Medical History: Renal Disease Additional Family Medical History / Comment(s): Mother from renal disease. Father History Unknown: Yes Family Medical History: Unable to Obtain Medications and Allergies Home Medications Medication Instructions Recorded Confirmed Type Aspirin EC [Ecotrin Low Dose] 81 mg PO QAM 01/04/25 01/05/25 History Clopidogrel [Plavix] 75 mg PO QAM 01/04/25 01/04/25 History Lagevrio 3 cap PO TID-W/MEALS 01/04/25 01/04/25 History Sacubitril/Valsartan [Entresto 49 1 each PO BID 01/04/25 01/04/25 History mg-51 mg Tablet] amLODIPine [Norvasc] 10 mg PO QAM 01/04/25 01/04/25 History carvediloL [Coreg] 25 mg PO BID 01/04/25 01/04/25 History Allergies Allergy/AdvReac Type Severity Reaction Status Date / Time Iodinated Contrast Media Allergy Rash/Hives Verified 02/11/25 06:38 azithromycin AdvReac Unknown Verified 02/11/25 06:38 Macrolide Antibiotics AdvReac Unknown Verified 02/11/25 06:38 Macrolide Immunosuppressant AdvReac Unknown Verified 02/11/25 06:38 NSAIDS (Non-Steroidal AdvReac Unknown Verified 02/11/25 06:38 Anti-Inflamma Sulfa (Sulfonamide AdvReac Unknown Verified 02/11/25 06:38 Antibiotics) sulfamethoxazole AdvReac Unknown Verified 02/11/25 06:38 [From Bactrim] trimethoprim [From Bactrim] AdvReac Unknown Verified 02/11/25 06:38 Physical Exam Vitals: Vital Signs Temp Pulse Resp BP Pulse Ox 02/11/25 10:05 61 18 168/88 99 02/11/25 08:37 59 L 18 192/97 99 02/11/25 08:18 60 18 188/94 98 02/11/25 06:31 97.6 F 72 18 204/99 99 Intake and Output 02/10/25 02/11/25 02/11/25 22:59 06:59 14:59 Other: Weight 56.699 kg Results - Lab Results Most recent lab results Calcium 8.5 mg/dL (8.4-10.2) 02/11/25 08:11 Magnesium 2.4 mg/dL (1.6-2.3) H 02/11/25 08:11 02/11/25 08:11 02/11/25 08:11 Assessment and Plan Plan: Assessment: 1. End-stage renal disease maintained on hemodialysis on Friday schedule. 2. Hypertensive urgency. Improved. Due to noncompliance. 3. Chronic kidney disease mineral bone disease. 4. Cardiomyopathy. Plan: Resume home antihypertensives. Add as needed hydralazine. Hemodialysis today. Potential discharge after dialysis today. Stressed compliance with medications and dialysis treatments outpatient. Thank you for the consultation. I will continue to follow the patient with you during his hospital stay.
[2025-02-11 18:45] VITALS: BP 174/80; PULSE 67; RESP 18; TEMP 98
== END 2025-02-11 19:18 | disposition home or self-care (01) ==
LOC: EC 06:18
CPT/HCPCS: 36415; 71046; 80053; 83735; 84484; 85025; 85610; 85730; 90935; 93005; 99284